=== PATIENT | female | born 1965 | race Caucasian/White ===

== ENCOUNTER → 2020-12-04 09:28 | Outpatient (CLI) | payer MEDICAID, SELFPAY ==
[2020-12-04 10:35] LABS: Vitamin D,25 Hydroxy 13.7 ng/mL
[2020-12-04 10:49] LABS: Anion Gap 4 (5-15); BUN 10 mg/dL (7-18); BUN/Creat Ratio 18.7 RATIO (10-20); Calcium,Total 14.3 mg/dL (8.5-10.1); Chloride 110 mmol/L (98-107); Cholesterol 259 mg/dL (200); Creatinine, Serum 0.54 mg/dL (0.55-1.02); EST Glomerular Filtration Rate 125 mL/min (>60); Est Glom Filt Rate - Afr Amer 151 mL/min (>60); Glucose 103 mg/dL (74-106); High Density Lipoprotein 48 mg/dL; Potassium 3.8 mmol/L (3.5-5.1); Sodium Level 141 mmol/L (136-145); Thyroid Stim Hormone (TSH) 1.05 uIU/mL (0.358-3.74); Triglycerides 198 mg/dL; Very Low Density Lipoprotein 40 mg/dL (5-40)
== END ==
PROVIDERS: Visit Provider Family Medicine
DX: Z00.00 Encounter for general adult medical examination without abnormal findings (principal)
CPT/HCPCS: 36415; 80048; 80061; 82306; 84443

== ENCOUNTER → 2020-12-08 14:13 | Outpatient (CLI) | payer MEDICAID, SELFPAY ==
[2020-12-08 16:02] LABS: Anion Gap 2 (5-15); BUN 10 mg/dL (7-18); BUN/Creat Ratio 18.2 RATIO (10-20); Calcium,Total 14.8 mg/dL (8.5-10.1); Chloride 110 mmol/L (98-107); Creatinine, Serum 0.55 mg/dL (0.55-1.02); EST Glomerular Filtration Rate 121 mL/min (>60); Est Glom Filt Rate - Afr Amer 146 mL/min (>60); Glucose 92 mg/dL (74-106); Potassium 4.2 mmol/L (3.5-5.1); Sodium Level 140 mmol/L (136-145)
[2020-12-11 09:21] LABS: PTHIN 529.9 pg/mL (18.4-80.1)
== END ==
PROVIDERS: PCP Family Medicine; Referring Provider Family Medicine; Visit Provider Family Medicine
DX: E83.52 Hypercalcemia (principal)
CPT/HCPCS: 36415; 80048; 82330; 83970

== ENCOUNTER 2020-12-12 14:26 | Observation (INO) | payer MEDICAID, SELFPAY ==
[2020-12-12 14:27] VITALS: BP 174/75; PULSE 73; RESP 16; TEMP 36.8; O2SAT 97; BMI 19.3
[2020-12-12 15:10] LABS: Absolute Lymphocyte Count 2.02 X10^3/uL (0.83-4.51); Absolute Neutrophil Count 5.3 X10^3/uL (2.0-7.7); Basophil# 0.08 X10^3/uL; Eosinophil# 0.26 X10^3/uL; Eosinophils% 3.2 % (0-5); Hematocrit 40.4 % (37-47); Hemoglobin 12.9 g/dL (12.0-15.0); Lymphocyte # 2.02 X10^3/ul (0.83-4.51); Lymphocyte % 24.8 % (19-41); Mean Corp Hgb Conc 31.9 g/dL (32-36); Mean Corpuscular Hgb 27.6 pg (27.0-32.0); Mean Corpuscular Volume 86.5 fL (81-99); Mean Platelet Vol. 10.6 fl (6.2-12.0); Monocyte# 0.45 X10^3/uL; Monocyte% 5.5 % (0-10); NRBC Flagged by Analyzer 0 % (0-5); Neutrophil # 5.31 X10^3/uL (2.7-7.7); Neutrophil % 65.1 % (47-70); Platelet Count 348 K/mm3 (150-450); RBC Distribution Width CV 13.8 % (11.6-14.6); RBC Distribution Width SD 43.5 fl (35.1-43.9); Red Blood Count 4.67 M/mm3 (4.2-5.4); White Blood Count 8.2 K/mm3 (4.4-11.0)
[2020-12-12 15:23] LABS: Anion Gap 2 (5-15); BUN 9 mg/dL (7-18); BUN/Creat Ratio 16.2 RATIO (10-20); Calcium,Total 14.4 mg/dL (8.5-10.1); Chloride 112 mmol/L (98-107); Creatinine, Serum 0.56 mg/dL (0.55-1.02); EST Glomerular Filtration Rate 119 mL/min (>60); Est Glom Filt Rate - Afr Amer 144 mL/min (>60); Estimated Creatinine Clearance 76.19 ml/min; Glucose 93 mg/dL (74-106); Magnesium 2.2 mg/dL (1.6-2.6); Potassium 3.6 mmol/L (3.5-5.1); Sodium Level 141 mmol/L (136-145)
--- NOTE | 2020-12-12 15:24 | RAD_ITS ---
STUDY: X-RAY CHEST REASON FOR EXAM: Female, 55 years old. Cough TECHNIQUE: PA and lateral views of the chest. COMPARISON: None. FINDINGS: Hyperinflation. Decreased bronchovascular markings in the lungs suggestive of emphysematous change. There is no demonstrated pleural abnormality. Normal size heart. Normal mediastinum and eldon. Normal visualized pulmonary arteries. Normal visualized aortic arch and descending thoracic aorta. Normal visualized thoracic spine. Normal visualized ribs, clavicles, and shoulders. There is no demonstrated abnormality of the visualized soft tissue structures of the upper abdomen. RAD/Chest PA and Lateral IMPRESSION: Hyperinflation and findings suggestive of emphysematous change. Electronically Signed: Miguel Angel Aragon MD at 15:44 EDT , Service support ,
[2020-12-12 15:38] VITALS: BP 126/59; PULSE 64; RESP 22; O2SAT 97
--- NOTE | 2020-12-12 16:42 | EX.ED.DYSGE1 ---
HPI History of Present Illness Chief Complaint: Abn Labs Narrative Narrative: Patient presenting for evaluation secondary to abnormal labs. Patient went to her primary care because she was having issues with generalized body pain. He initially started her on some antidepressants but did order lab work which ultimately resulted in the patient being profoundly hypercalcemic and to have hyperparathyroidism. He recommended that the patient come to the emergency department for further evaluation and likely admission. He did discuss this with endocrinology who recommended a sestamibi scan. Patient denies any fevers chills night sweats or unintended weight loss. She denies any neck pain or any difficulty swallowing. No heat or cold intolerance or changes in her appetite or mood. Review of systems otherwise negative. PFSH PFS Medical History History of anxiety Smoker Home Medications alendronate [Fosamax] 70 mg PO QWEEK 12/12/20 [History Last Taken Unknown] rosuvastatin [Crestor] 5 mg PO DAILY 12/12/20 [History Last Taken 12/11/20] sertraline [Zoloft] 25 mg PO DAILY 12/12/20 [History Last Taken 12/11/20] Allergy/AdvReac Type Severity Reaction Status Date / Time midazolam [From Versed] Allergy Nausea Verified 12/12/20 14:27 nalbuphine [From Nubain] Allergy Nausea Verified 12/12/20 14:27 Surgical History History of cholecystectomy History of hysterectomy Social History Smoking Status: Light Smoker (<10/day) ROS [facility] ED Constitutional Constitutional ED: Denies chills or fever(s) ENT ENT ED: Denies rhinorrhea Cardiovascular Cardiovascular: Denies chest pain Respiratory/Chest Respiratory/Chest: Denies cough or dyspnea Gastrointestinal Gastrointestinal: Denies abdominal pain, diarrhea, nausea or vomiting Genitourinary Genitourinary ED: Denies dysuria or hematuria Musculoskeletal Musculoskeletal: Denies back pain Integumentary Denies rash Neurologic Neurologic: Denies paresthesias or weakness Psychiatric Psychiatric: Denies depression Endocrine Endocrinology: Denies fatigue Allergic/Immunologic Allergic/Immunologic ED: Denies urticaria EXAM Physical Exam Const Vital Signs: 12/12/20 14:27 12/12/20 14:45 12/12/20 15:38 Temperature 98.3 F Temperature Source Temporal Pulse Rate 73 64 Respiratory Rate 16 22 H Respiratory Effort Normal Respiratory Pattern Normal Blood Pressure 174/75 H 126/59 H Blood Pressure Mean 108 81 Pulse Ox 97 97 Oxygen Delivery Method Room Air Room Air Positive well nourished and well developed General Appearance ED: well developed and NAD HEENT Reports moist mucous membranes Negative for trauma or tenderness Eyes EOMs intact bilaterally Neck no lymphadenopathy, supple and no JVD Chest Wall inspection of chest normal Resp normal respiratory effort and clear to auscultation bilaterally Cardio regular rate, regular rhythm, no murmurs and peripheral pulses 2+ throughout GI normal to inspection, nondistended, normoactive bowel sounds, non-tender and no masses Palpation: soft Back/Spine normal to inspection Extremity normal to inspection General Extremety ED: Negative for tenderness Neuro oriented x3 and no sensory deficits noted Sensorium / Orientation: alert Motor Exam: strength 5/5 throughout Psych mental status grossly normal Skin no rashes or lesions noted MDM MDM MDM Narrative Medical decision making narrative: Patient presented secondary to abnormal labs. This was confirmed on her laboratory testing the patient was noted to have a calcium of 14.4 consistent with her prior studies. Patient will be admitted for further work-up and treatment. I did perform a chest x-ray on the patient which by my personal review shows no signs of infiltrate or mass. Lab Data Labs: Laboratory Results - last 24 hr 12/12/20 12/12/20 15:00 15:00 WBC 8.2 RBC 4.67 Hgb 12.9 Hct 40.4 MCV 86.5 MCH 27.6 MCHC 31.9 L RDW Std Deviation 43.5 RDW Coeff of Tanner 13.8 Plt Count 348 MPV 10.6 Immature Gran % (Auto) 0.400 Neut % (Auto) 65.1 Lymph % (Auto) 24.8 [place] % (Auto) 5.5 Eos % (Auto) 3.2 Baso % (Auto) 1.0 Absolute Neuts (auto) 5.3 Absolute Lymphs (auto) 2.02 Nucleated RBC % 0 Sodium 141 Potassium 3.6 Chloride 112 H Carbon Dioxide 27.0 Anion Gap 2 L BUN 9 Creatinine 0.56 Estim Creat Clear Calc 76.19 Est GFR (MDRD) Af Amer 144 Est GFR (MDRD) Non-Af 119 BUN/Creatinine Ratio 16.2 Glucose 93 Calcium 14.4 H* Magnesium 2.2 Radiography Chest X-Ray - ED: 2 View, Read by ED Physician and Normal Diagnostic Testing: Radiology Impression Chest X-Ray 12/12/20 15:24 IMPRESSION: Hyperinflation and findings suggestive of emphysematous change. Electronically Signed: Miguel Angel Aragon MD at 15:44 EDT , Service support , Discharge Plan Triage Chief Complaint: Abn Labs ED Provider: Arnie Elliott Dx/Rx/DC Orders Clinical Impression: Hypercalcemia Prescriptions: No Action alendronate [Fosamax] 70 mg tablet 70 mg PO QWEEK RF: 0 sertraline [Zoloft] 25 mg tablet 25 mg PO DAILY RF: 0 rosuvastatin [Crestor] 5 mg tablet 5 mg PO DAILY RF: 0 Primary Care Provider: Robinson Patiño Referrals: Robinson Patiño MD [Primary Care Provider] - Disposition Disposition: Acute Care Hospital [facility]
--- NOTE | 2020-12-12 16:47 | NURSING ---
[address] [place] HYPERCALCALC[facility]
[2020-12-12 16:48] VITALS: BP 126/59; PULSE 64; RESP 22; TEMP 36.8; O2SAT 97
[2020-12-12 17:23] VITALS: BMI 19.0
--- NOTE | 2020-12-12 17:26 | PCM.HP.STD ---
Documented by User: Thomas JAMES 12/12/20 17:46 HPI - General General Date of Admission: 12/12/20 HPI Narrative Patient is a 55-year-old female who presents to the ED 12/12/2020 with a chief complaint of anxiety and diffuse body pain. 1 week ago patient started noticed that she has bilateral hand/joint pain, around the same time daughter started noticed that her her mother's anxiety was increasing. Patient presented to her primary care provider who placed the patient on Zoloft for anxiety and roz appropriate labs. Today patient was contacted by her primary care provider who told her that she had an elevated calcium level and that she needed to present to the ED immediately. ROS positive for chest pain, palpitation and mood changes which patient attributes to her recent anxiety. Denies fevers, chills, night sweats, unintended weight loss neck pain, difficulty swallowing, heat or cold intolerance, changes in appetite. work-up in the ED demonstrated a calcium of 14.4, which was consistent with prior studies. CBC unremarkable. Parathyroid hormone drawn on 12/08/2020 was 529.9. Chest x-ray demonstrated hyperinflation of the lungs suggestive of emphysematous change, no signs of mass or infiltrate evident. Patient will be admitted for work-up of hyperparathyroidism. COUNT INCLUDES [facility] Medical History History of anxiety Smoker Home Medications alendronate [Fosamax] 70 mg PO QWEEK 12/12/20 [History Last Taken Unknown] rosuvastatin [Crestor] 5 mg PO DAILY 12/12/20 [History Last Taken 12/11/20] sertraline [Zoloft] 25 mg PO DAILY 12/12/20 [History Last Taken 12/11/20] Allergy/AdvReac Type Severity Reaction Status Date / Time codeine AdvReac blacked Verified 12/12/20 16:48 out midazolam [From Versed] AdvReac Nausea/vomi Verified 12/12/20 16:48 ting nalbuphine [From Nubain] AdvReac Nausea/vomi Verified 12/12/20 16:48 ting Surgical History History of cholecystectomy History of hysterectomy Social History Smoking Status: Light Smoker (<10/day) ROS ROS Narrative See HPI Constitutional Constitutional: Denies anorexia, change in weight, chills, fatigue, fever(s), malaise, night sweats, weakness or other Eyes Eyes: Denies blurry vision, change in eye color, change in vision, discharge from eye(s), double vision, erythema, eye pain, loss of vision or other ENT HEENT: Denies abnormal hearing, dysphagia, ear pain, epistaxis, headache(s), hearing loss, nasal congestion, nasal discharge, post nasal drip, sinus pressure, sore throat or other Cardiovascular Cardiovascular: Reports chest pain and palpitations Respiratory/Chest Respiratory/Chest: Denies cough, dyspnea, excessive phlegm production, hemoptysis, productive cough, shortness of breath at rest, shortness of breath with exertion, wheezing or other Gastrointestinal Gastrointestinal: Denies abdominal pain, coffee ground emesis, constipation, diarrhea, dyspepsia, hematemesis, hematochezia, loose stools, melena, nausea, vomiting or other Genitourinary Genitourinary: Denies burning urination, difficulty urinating, dysuria, hematuria, nocturia, urinary frequency, urinary hesitancy, urinary incontinence, urinary urgency or other Musculoskeletal Musculoskeletal: Reports back pain and joint pain Neurologic Neurologic: Denies abnormal gait, abnormal speech, confusion, disequilibrium, dizziness, focal weakness, headache(s), numbness, paresthesias, seizure-like activity, seizures, syncope, tingling, tremor(s) or other Psychiatric Psychiatric: Reports anxiety Endocrine Endocrinology: Denies change in body appearance, cold intolerance, excessive sweating, heat intolerance, polydipsia, polyuria or other Hematologic/Lymphatic Hematologic/Lymphatic: Denies anemia, easy bleeding, easy bruising, lymphadenopathy or other Allergic/Immunologic Allergic/Immunologic: Denies rhinitis, hives, eczemia, asthma or other Vital Signs Vital Signs Vital Signs: 12/12/20 14:27 12/12/20 14:45 12/12/20 15:38 Temperature 98.3 F Temperature Source Temporal Pulse Rate 73 64 Respiratory Rate 16 22 H Respiratory Effort Normal Respiratory Pattern Normal Blood Pressure 174/75 H 126/59 H Blood Pressure Mean 108 81 Pulse Ox 97 97 Oxygen Delivery Method Room Air Room Air 12/12/20 16:48 Temperature 98.3 F Temperature Source Temporal Pulse Rate 64 Respiratory Rate 22 H Respiratory Effort Respiratory Pattern Blood Pressure 126/59 H Blood Pressure Mean 81 Pulse Ox 97 Oxygen Delivery Method Room Air Physical Exam Narrative See HPI. Const alert, oriented x3 and no apparent distress HEENT normocephalic, head/scalp atraumatic and hearing grossly normal bilaterally Eyes EOMs intact bilaterally Neck no lymphadenopathy, supple and no JVD Resp normal respiratory effort and clear to auscultation bilaterally Cardio regular rate, regular rhythm, no murmurs and no JVD GI normal to inspection, nondistended, normoactive bowel sounds, soft to palpation and non-tender Extremity full ROM Skin no rashes or lesions noted, no wounds and no jaundice Neuro CN's II-XII intact bilaterally Psych affect normal Lab / Micro Data Result Diagrams: 12/12/20 15:00 12/12/20 15:00 Labs: Laboratory Results - last 24 hr 12/12/20 12/12/20 15:00 15:00 WBC 8.2 RBC 4.67 Hgb 12.9 Hct 40.4 MCV 86.5 MCH 27.6 MCHC 31.9 L RDW Std Deviation 43.5 RDW Coeff of Tanner 13.8 Plt Count 348 MPV 10.6 Immature Gran % (Auto) 0.400 Neut % (Auto) 65.1 Lymph % (Auto) 24.8 [place] % (Auto) 5.5 Eos % (Auto) 3.2 Baso % (Auto) 1.0 Absolute Neuts (auto) 5.3 Absolute Lymphs (auto) 2.02 Nucleated RBC % 0 Sodium 141 Potassium 3.6 Chloride 112 H Carbon Dioxide 27.0 Anion Gap 2 L BUN 9 Creatinine 0.56 Estim Creat Clear Calc 76.19 Est GFR (MDRD) Af Amer 144 Est GFR (MDRD) Non-Af 119 BUN/Creatinine Ratio 16.2 Glucose 93 Calcium 14.4 H* Magnesium 2.2 Radiology Impression Chest X-Ray 12/12/20 15:24 IMPRESSION: Hyperinflation and findings suggestive of emphysematous change. Electronically Signed: Miguel Angel Aragon MD at 15:44 EDT , Service support , Assessment & Plan Assessment/Plan (1) Hypercalcemia: Status: Acute Code(s): E83.52 - Hypercalcemia (2) Hyperparathyroidism: Status: Acute Code(s): E21.3 - Hyperparathyroidism, unspecified (3) History of anxiety: Status: Acute Code(s): Z86.59 - Personal history of other mental and behavioral disorders Plan: Patient is a 55-year-old female who presents to the ED 12/12/2020 with a chief complaint of anxiety and diffuse body pain. Patient presented to her primary care provider who placed the patient on Zoloft for anxiety and roz appropriate labs. Today patient was contacted by her primary care provider who told her that she had an elevated calcium level and that she needed to present to the ED immediately. ROS positive for chest pain, palpitation and mood changes which patient attributes to her recent anxiety. Work-up in the ED demonstrated a calcium of 14.4, which was consistent with prior studies. Parathyroid hormone drawn on 12/08/2020 was 529.9. Chest x-ray demonstrated hyperinflation of the lungs suggestive of emphysematous change, no signs of mass or infiltrate evident. Patient will be admitted for work-up of hyperparathyroidism to Med Surg 3. 1) Hypercalcemia secondary to hyperparathyroidism. 1 week history of diffuse body pain and anxiety. Labs at her primary care provider, as well as in the ED, demonstrated hypercalcemia, calcium currently 14.4. Labs from 12/08/2020 demonstrated a parathyroid hormone of 529.9, current labs pending. Plan; CBC and BMP in a.m, parathyroid scan in a.m, Fosamax initiated, Zofran as needed, Tylenol as needed. 2) Hx of Anxiety Possibly secondary to #1. Plan; Zoloft continued. DVT prophylaxis -not indicated Patient seen by Thomas Etienne PA-C, under the supervision of Dr. Card. Documented by User: Dr. Brad Card MD 12/12/20 19:22 HPI - General General Date of Admission: 12/12/20 PFS Medical History History of anxiety Smoker Home Medications alendronate [Fosamax] 70 mg PO QWEEK 12/12/20 [History Last Taken Unknown] rosuvastatin [Crestor] 5 mg PO DAILY 12/12/20 [History Last Taken 12/11/20] sertraline [Zoloft] 25 mg PO DAILY 12/12/20 [History Last Taken 12/11/20] Allergy/AdvReac Type Severity Reaction Status Date / Time codeine AdvReac blacked Verified 12/12/20 16:48 out midazolam [From Versed] AdvReac Nausea/vomi Verified 12/12/20 16:48 ting nalbuphine [From Nubain] AdvReac Nausea/vomi Verified 12/12/20 16:48 ting Surgical History History of cholecystectomy History of hysterectomy Social History Smoking Status: Light Smoker (<10/day) Lab / Micro Data Result Diagrams: 12/12/20 15:00 12/12/20 15:00 Addendum Addendum: Dr. Card: I personally reviewed the chart and examined the patient, and agree with the above findings. 55-year-old female presents from home on advice of her PCP secondary to highly elevated calcium level. She has been hypercalcemic for about a week now, and has remained hypercalcemic since December 04, 2020, at that time she was also found to have a vitamin D deficiency and highly elevated PTH to 529.9. She states that about 3 months ago she noticed that her urine was very concentrated but she has been having episodes of anxiety as well as chest pain but no recent kidney stones for about a month. She recently moved here from [place] and just found her PCP. In discussions with endocrinology, it was felt that she needed a parathyroid scan for localization. We will continue with IV fluids, she has not started her bisphosphonate, if the IV fluids do not decrease her calcium may need to proceed with denosumab or something similar. Visit Charges OBSV E&M: 28347 Initial observation care L3
[2020-12-12 17:46] VITALS: BP 134/77; PULSE 58; RESP 16; TEMP 36.8; O2SAT 97
[2020-12-12] MEDS: 0.9% Normal Saline 1,000 ML 125 ML IV (17:55)
[2020-12-12 21:20] VITALS: BP 123/55; PULSE 66; RESP 16; TEMP 36.8; O2SAT 96
[2020-12-12] MEDS: Atorvastatin Calcium 10 MG Tablet PO (21:26)
[2020-12-13] MEDS: 0.9% Normal Saline 1,000 ML 125 ML IV ×3 (01:28→18:12)
[2020-12-13 02:34] VITALS: BP 106/56; PULSE 55; RESP 16; TEMP 36.8; O2SAT 95
[2020-12-13 05:36] LABS: Absolute Lymphocyte Count 2.76 X10^3/uL (0.83-4.51); Absolute Neutrophil Count 3.7 X10^3/uL (2.0-7.7); Basophil# 0.05 X10^3/uL; Basophil% 0.7 % (0-1); Eosinophil# 0.39 X10^3/uL; Eosinophils% 5.2 % (0-5); Hematocrit 34.6 % (37-47); Hemoglobin 10.8 g/dL (12.0-15.0); Lymphocyte # 2.76 X10^3/ul (0.83-4.51); Lymphocyte % 36.6 % (19-41); Mean Corp Hgb Conc 31.2 g/dL (32-36); Mean Corpuscular Hgb 27.8 pg (27.0-32.0); Mean Corpuscular Volume 88.9 fL (81-99); Mean Platelet Vol. 10.8 fl (6.2-12.0); Monocyte# 0.62 X10^3/uL; Monocyte% 8.2 % (0-10); NRBC Flagged by Analyzer 0 % (0-5); Neutrophil # 3.71 X10^3/uL (2.7-7.7); Neutrophil % 49.2 % (47-70); Platelet Count 282 K/mm3 (150-450); RBC Distribution Width CV 13.9 % (11.6-14.6); RBC Distribution Width SD 45.3 fl (35.1-43.9); Red Blood Count 3.89 M/mm3 (4.2-5.4); White Blood Count 7.5 K/mm3 (4.4-11.0)
[2020-12-13] MEDS: Alendronate Sodium 70 MG Tablet PO (05:41)
[2020-12-13 05:54] LABS: Anion Gap 2 (5-15); BUN 12 mg/dL (7-18); BUN/Creat Ratio 23.8 RATIO (10-20); Calcium,Total 12.5 mg/dL (8.5-10.1); Chloride 114 mmol/L (98-107); EST Glomerular Filtration Rate 133 mL/min (>60); Est Glom Filt Rate - Afr Amer 161 mL/min (>60); Estimated Creatinine Clearance 83.68 ml/min; Glucose 96 mg/dL (74-106); Potassium 3.8 mmol/L (3.5-5.1); Sodium Level 142 mmol/L (136-145)
--- NOTE | 2020-12-13 05:55 | NM_ITS ---
Parathyroid scintigraphy INDICATION: Primary hyperparathyroidism. TECHNIQUE: After the ministration of 26.8 mCi of technetium 99m sestamibi intravenously, multiple scintigraphic images of the neck were obtained. FINDINGS: Examination immediate images demonstrates normal uptake within the salivary glands and thyroid gland. Examination the delayed image demonstrates no abnormal area of increased uptake within the neck to suggest parathyroid adenoma. IMPRESSION: No scintigraphic evidence of parathyroid adenoma. Electronically Signed: Orestes Dean MD at 11:35 EDT Tel , Service support , NM/Parathyroid Scan
[2020-12-13] MEDS: 0.9% Saline Lock 10 ML Syringe IV (08:47)
[2020-12-13 09:12] LABS: PTHIN 493.1 pg/mL (18.4-80.1)
[2020-12-13 09:54] VITALS: BP 108/46; PULSE 57; RESP 18; TEMP 36.8; O2SAT 95
[2020-12-13] MEDS: Sertraline 50 MG Tablet 25 MG PO (09:59)
--- NOTE | 2020-12-13 13:34 | PCM.PN.HOSP ---
Documented by User: Thomas JAMES 12/13/20 13:46 Subjective Subjective: Patient is a 55-year-old female comfortably resting in bed, alert and oriented x3. Patient endorses moderate pain throughout her body especially in her hands bilaterally. Denies chest pain, shortness of breath, palpitations, fever, chills, N/V/D. Objective Data Objective Data Vital Signs: Vital Signs Temp Pulse Resp BP Pulse Ox 98.2 F 57 L 18 108/46 L 95 12/13/20 09:54 12/13/20 09:54 12/13/20 09:54 12/13/20 09:54 12/13/20 09:54 Oxygen Delivery Method Room Air Weight: 94 lb 2.198 oz Body Mass Index (BMI) 19.0 Intake & Output: Intake and Output for Last 24 Hours 12/11/20 12/12/20 12/13/20 23:59 23:59 23:59 Intake Total 2775.00 / 2775.00 Balance 2775.00 / 2775.00 Lab / Micro Data Result Diagrams: 12/13/20 05:22 12/13/20 05:22 Labs: Laboratory Results - last 24 hr 12/12/20 12/12/20 12/12/20 15:00 15:00 15:00 WBC 8.2 RBC 4.67 Hgb 12.9 Hct 40.4 MCV 86.5 MCH 27.6 MCHC 31.9 L RDW Std Deviation 43.5 RDW Coeff of Tanner 13.8 Plt Count 348 MPV 10.6 Immature Gran % (Auto) 0.400 Neut % (Auto) 65.1 Lymph % (Auto) 24.8 [place] % (Auto) 5.5 Eos % (Auto) 3.2 Baso % (Auto) 1.0 Absolute Neuts (auto) 5.3 Absolute Lymphs (auto) 2.02 Nucleated RBC % 0 Sodium 141 Potassium 3.6 Chloride 112 H Carbon Dioxide 27.0 Anion Gap 2 L BUN 9 Creatinine 0.56 Estim Creat Clear Calc 76.19 Est GFR (MDRD) Af Amer 144 Est GFR (MDRD) Non-Af 119 BUN/Creatinine Ratio 16.2 Glucose 93 Calcium 14.4 H* Magnesium 2.2 PTH Intact 493.1 H 12/13/20 12/13/20 05:22 05:22 WBC 7.5 RBC 3.89 L Hgb 10.8 L Hct 34.6 L MCV 88.9 MCH 27.8 MCHC 31.2 L RDW Std Deviation 45.3 H RDW Coeff of Tanner 13.9 Plt Count 282 MPV 10.8 Immature Gran % (Auto) 0.100 Neut % (Auto) 49.2 Lymph % (Auto) 36.6 [place] % (Auto) 8.2 Eos % (Auto) 5.2 H Baso % (Auto) 0.7 Absolute Neuts (auto) 3.7 Absolute Lymphs (auto) 2.76 Nucleated RBC % 0 Sodium 142 Potassium 3.8 Chloride 114 H Carbon Dioxide 26.0 Anion Gap 2 L BUN 12 Creatinine 0.50 L Estim Creat Clear Calc 83.68 Est GFR (MDRD) Af Amer 161 Est GFR (MDRD) Non-Af 133 BUN/Creatinine Ratio 23.8 H Glucose 96 Calcium 12.5 H Magnesium PTH Intact Radiography Diagnostic Testing: Radiology Impression Chest X-Ray 12/12/20 15:24 IMPRESSION: Hyperinflation and findings suggestive of emphysematous change. Electronically Signed: Miguel Angel Aragon MD at 15:44 EDT , Service support , Parathyroid Scan Nuclear Medicine 12/13/20 05:55 Physical Exam Narrative See subjective. Const alert, oriented x3 and no apparent distress Constitutional Narrative: Patient reports moderate pain throughout her body and hands bilaterally. HEENT head/scalp atraumatic and moist oral mucous membranes Head and Scalp: normocephalic Eyes EOMs intact bilaterally Neck no lymphadenopathy, supple and no JVD Resp normal respiratory effort, no retractions, no use of accessory muscles and clear to auscultation bilaterally Cardio regular rate, regular rhythm, no murmurs and no JVD GI normal to inspection, nondistended, normoactive bowel sounds, soft to palpation, non-tender and non-distended Extremity normal to inspection and full ROM Skin no rashes or lesions noted and no wounds Neuro CN's II-XII intact bilaterally Psych affect normal Assessment & Plan Assessment/Plan (1) History of anxiety: Status: Acute Code(s): Z86.59 - Personal history of other mental and behavioral disorders (2) Hyperparathyroidism: Status: Acute Code(s): E21.3 - Hyperparathyroidism, unspecified (3) Hypercalcemia: Status: Acute Code(s): E83.52 - Hypercalcemia Plan: Patient is a 55-year-old female who was admitted to the hospital on 12/12/2020 with a chief complaint of anxiety diffuse body pain, and admitted for hypercalcemia potentially due to hyperparathyroidism. Initial nuclear medicine scan this morning demonstrated no scintigraphic evidence of parathyroid adenoma. Repeat scan ordered per radiologist. Currently awaiting results. 1) Hypercalcemia secondary to hyperparathyroidism. Hypercalcemia on admission at 14.4, parathyroid hormone 529.9. Currently, 12.5 and 493.1, respectively. Plan; CBC and BMP in a.m, parathyroid scan in a.m, Fosamax initiated, Zofran as needed, Tylenol as needed, repeat nuclear medicine scan results pending. 2) Hx of Anxiety Possibly secondary to #1. Plan; Zoloft continued. DVT prophylaxis - not indicated Patient seen by Thomas Etienne PA-C, under the supervision of Dr. Card. Documented by User: Dr. Michelle Baron MD 12/13/20 16:08 Objective Data Lab / Micro Data Result Diagrams: 12/13/20 05:22 12/13/20 05:22 Visit Charges Inpatient E&M: 50125 Subs Hosp L2 Addendum Patient seen and examined. She was admitted with a complaint of anxiety and diffuse body pain. She had seen her PCP was contacted after results of blood work done showed elevated calcium. She was directed to the ED. Calcium was 14.4 and PTH. Labs done on 12/08/2020 was 5-9.9. She has been managed for hypercalcemia and hyperparathyroidism. Patient was seen in her bed with daughter by her bedside. She complained of generalized body pain. She denied any shortness of breath, fever chills, constipation, abdominal pain, nausea vomiting or diarrhea. Review of symptoms otherwise negative. She has remained hemodynamically stable. O/E: Const alert, oriented x3 and no apparent distress, appears older than stated age. HEENT head/scalp atraumatic and moist oral mucous membranes Head and Scalp: normocephalic Eyes EOMs intact bilaterally Neck no lymphadenopathy, supple and no JVD Resp normal respiratory effort, no retractions, no use of accessory muscles and clear to auscultation bilaterally Cardio regular rate, regular rhythm, no murmurs and no JVD GI normal to inspection, nondistended, normoactive bowel sounds, soft to palpation, non-tender and non-distended Extremity normal to inspection and full ROM Skin no rashes or lesions noted and no wounds Neuro CN's II-XII intact bilaterally Psych affect normal Plan is to continue hydration with IV fluid on account of hypercalcemia. Calcium is now down to 12.5. She has been started on Fosamax. Parathyroid scan done today showed no evidence of parathyroid adenoma. Will trend calcium and if remains elevated, will consult endocrinology. Rest as per Thomas Etienne PA-C's note, which I have reviewed and endorsed. Inpatient E&M: 04372 Subs Hosp L2
[2020-12-13 15:55] VITALS: BP 132/47; PULSE 61; RESP 18; TEMP 37.1; O2SAT 97
[2020-12-13] MEDS: Atorvastatin Calcium 10 MG Tablet PO (21:13)
[2020-12-13 21:55] VITALS: BP 107/49; PULSE 55; RESP 16; TEMP 37.2; O2SAT 98
[2020-12-13 23:00] VITALS: PULSE 55
[2020-12-14] MEDS: 0.9% Normal Saline 1,000 ML 125 ML IV ×2 (02:09→09:35)
[2020-12-14 03:55] VITALS: BP 131/49; PULSE 59; RESP 16; TEMP 36.9; O2SAT 97
[2020-12-14 06:38] LABS: Absolute Lymphocyte Count 1.66 X10^3/uL (0.83-4.51); Absolute Neutrophil Count 4.5 X10^3/uL (2.0-7.7); Basophil# 0.03 X10^3/uL; Basophil% 0.4 % (0-1); Eosinophil# 0.37 X10^3/uL; Eosinophils% 5.3 % (0-5); Hematocrit 33.7 % (37-47); Hemoglobin 10.7 g/dL (12.0-15.0); Lymphocyte # 1.66 X10^3/ul (0.83-4.51); Lymphocyte % 23.8 % (19-41); Mean Corp Hgb Conc 31.8 g/dL (32-36); Mean Corpuscular Hgb 28.2 pg (27.0-32.0); Mean Corpuscular Volume 88.9 fL (81-99); Mean Platelet Vol. 10.9 fl (6.2-12.0); Monocyte# 0.39 X10^3/uL; Monocyte% 5.6 % (0-10); NRBC Flagged by Analyzer 0 % (0-5); Neutrophil # 4.51 X10^3/uL (2.7-7.7); Neutrophil % 64.8 % (47-70); Platelet Count 239 K/mm3 (150-450); RBC Distribution Width CV 14.1 % (11.6-14.6); RBC Distribution Width SD 45.6 fl (35.1-43.9); Red Blood Count 3.79 M/mm3 (4.2-5.4)
[2020-12-14 07:04] LABS: ALB/GLOB Ratio 1.1 RATIO (0.9-2.4); AST(SGOT) 11 U/L (15-37); Alanine Aminotransfer ALT/SGPT 15 U/L (13-56); Albumin, Serum 2.8 g/dL (3.2-5.0); Alkaline Phosphatase 110 U/L (45-117); Anion Gap 2 (5-15); BUN 8 mg/dL (7-18); BUN/Creat Ratio 16.9 RATIO (10-20); Calcium,Total 11.1 mg/dL (8.5-10.1); Chloride 118 mmol/L (98-107); Creatinine, Serum 0.47 mg/dL (0.55-1.02); EST Glomerular Filtration Rate 143 mL/min (>60); Est Glom Filt Rate - Afr Amer 174 mL/min (>60); Estimated Creatinine Clearance 89.02 ml/min; Globulin 2.5 g/dL (2.2-4.2); Glucose 88 mg/dL (74-106); Potassium 3.9 mmol/L (3.5-5.1); Protein, Total 5.3 g/dL (6.4-8.2); Sodium Level 143 mmol/L (136-145)
[2020-12-14 09:30] VITALS: BP 118/58; PULSE 70; RESP 18; TEMP 36.7; O2SAT 97
[2020-12-14] MEDS: Sertraline 50 MG Tablet 25 MG PO (09:35)
--- NOTE | 2020-12-14 12:59 | PCM.DC ---
Discharge Instructions Diet Discharge Diet: No restrictions Activity Discharge Activity: Return to Normal Activity Dressing / Incision Call your doctor if you observe: Numbness or Tingling, Dizziness, Chest pain and Uncontrolled pain Follow Up Care Test Results: Test results from this visit will be discussed in further detail at your follow-up appointment, if applicable. Discharge Plan Admission Admit Date/Time: 12/12/20 16:52 Attending Provider: Michelle Baron Primary Care Provider: Robinson Patiño Instructions Additional Instructions / Restrictions: You will hold Fosamax as you received IV dose of zoledronic acid prior to discharge. You will need repeat BMP in 3 to 5 days to reassess calcium which can be completed by your primary care provider. Spoke with endocrinology, Dr. Girard who recommends holding Fosamax pending repeat labs and follow-up with her 01/23/2021. Drink plenty of water. Discharge Orders/Prescriptions Prescriptions: Continued sertraline [Zoloft] 25 mg tablet 25 mg PO DAILY RF: 0 rosuvastatin [Crestor] 5 mg tablet 5 mg PO DAILY RF: 0 Discontinued alendronate [Fosamax] 70 mg tablet 70 mg PO QWEEK RF: 0 Referrals / Follow Up: Robinson Patiño MD [Primary Care Provider] - See Referral Note (3-5 Days) Jimmy Girard MD [STAFF PHYSICIAN] - See Referral Note (As scheduled at 01/23/2021 at 1330) Disposition Disposition (needs filled in before D/C Order can be placed): Home, self care
--- NOTE | 2020-12-14 13:08 | DS.PCM_ITS ---
Documented by User: Kelly Ricks NP, CARINE-C 12/14/20 13:19 Providers Date of Admission: 12/12/20 Primary Care Physician: Dr. Robinson Patiño MD Reason For Visit: HYPERPARATHYROIDISM Diagnosis Discharge Diagnosis (1) History of anxiety: Status: Acute Code(s): Z86.59 - Personal history of other mental and behavioral disorders (2) Hyperparathyroidism: Status: Acute Code(s): E21.3 - Hyperparathyroidism, unspecified (3) Hypercalcemia: Status: Acute Code(s): E83.52 - Hypercalcemia Medications at Discharge Home Medications rosuvastatin [Crestor] 5 mg PO DAILY 12/12/20 sertraline [Zoloft] 25 mg PO DAILY 12/12/20 Hospital Course Operations None Procedures None Summary of Care Provided Minutes Spent on Discharge: 35 Hospital Course: Patient is a 55-year-old female admitted 12/12/2020 due to pain and abnormal labs at PCP. 1. Hypercalcemia secondary to hyperparathyroidism-calcium 14.4 on admission. Parathyroid hormone 529. Aggressive hydration during admission. Recently initiated on Fosamax by PCP. Parathyroid scan showed no evidence of parathyroid adenoma. Calcium at discharge 11.1. Spoke with endocrinology, Dr. Girard who recommends IV dose of zoledronic acid 4 mg x 1 which will provide more extended control of calcium. Hold Fosamax at discharge for now following IV dose. Repeat BMP within 1 week by primary care provider. Patient has follow-up with Dr. Girard, endocrinology 01/23/2021 at 1:30 PM for further management and treatment. Patient may need tertiary outpatient evaluation given significantly elevated parathyroid hormone and negative parathyroid scan. 2. History of anxiety- on zoloft. Patient seen and examined prior to discharge. Physical assessment as noted below. Patient is stable for discharge with follow up recommendations as noted above. This patient was seen by PAM Middleton under the supervision of Dr. Baron. Physical Exam Const alert, oriented x3 and no apparent distress Orientation / Consciousness: awake, oriented to person, oriented to place and oriented to time HEENT normocephalic and moist oral mucous membranes Eyes PERRL, EOMs intact bilaterally and conjunctivae normal Neck no lymphadenopathy Resp normal respiratory effort and clear to auscultation bilaterally Cardio regular rate, regular rhythm and no murmurs Peripheral Pulses: pulses 2+ throughout GI normal to inspection, nondistended, normoactive bowel sounds, non-tender and non-distended Extremity normal to inspection Skin no rashes or lesions noted Lesions: no lesions Rashes: no rashes Trauma: no lacerations or abrasions Neuro oriented x3 Sensorium / Orientation: awake and alert Psych affect normal ABG / Lab / Microbiology Data Result Diagrams: 12/14/20 06:20 12/14/20 06:20 Laboratory: Laboratory Results - last 24 hr 12/14/20 12/14/20 06:20 06:20 WBC 7.0 RBC 3.79 L Hgb 10.7 L Hct 33.7 L MCV 88.9 MCH 28.2 MCHC 31.8 L RDW Std Deviation 45.6 H RDW Coeff of Tanner 14.1 Plt Count 239 MPV 10.9 Immature Gran % (Auto) 0.100 Neut % (Auto) 64.8 Lymph % (Auto) 23.8 [place] % (Auto) 5.6 Eos % (Auto) 5.3 H Baso % (Auto) 0.4 Absolute Neuts (auto) 4.5 Absolute Lymphs (auto) 1.66 Nucleated RBC % 0 Sodium 143 Potassium 3.9 Chloride 118 H Carbon Dioxide 23.0 Anion Gap 2 L BUN 8 Creatinine 0.47 L Estim Creat Clear Calc 89.02 Est GFR (MDRD) Af Amer 174 Est GFR (MDRD) Non-Af 143 BUN/Creatinine Ratio 16.9 Glucose 88 Calcium 11.1 H Total Bilirubin 0.20 AST 11 L ALT 15 Alkaline Phosphatase 110 Total Protein 5.3 L Albumin 2.8 L Globulin 2.5 Albumin/Globulin Ratio 1.1 D/C Instructions Discharge Diet: No restrictions Discharge Activity: Return to Normal Activity Call your doctor if you observe: Numbness or Tingling, Dizziness, Chest pain and Uncontrolled pain Meaningful Use Info Meaningful Use Diagnoses (Choose all that apply): None applicable Discharge Plan Admission Admit Date/Time: 12/12/20 16:52 Attending Provider: Michelle Baron Primary Care Provider: Robinson Patiño Instructions Additional Instructions / Restrictions: You will hold Fosamax as you received IV dose of zoledronic acid prior to discharge. You will need repeat BMP in 3 to 5 days to reassess calcium which can be completed by your primary care provider. Spoke with endocrinology, Dr. Girard who recommends holding Fosamax pending repeat labs and follow-up with her 01/23/2021. Drink plenty of water. Discharge Orders/Prescriptions Prescriptions: Continued sertraline [Zoloft] 25 mg tablet 25 mg PO DAILY RF: 0 rosuvastatin [Crestor] 5 mg tablet 5 mg PO DAILY RF: 0 Discontinued alendronate [Fosamax] 70 mg tablet 70 mg PO QWEEK RF: 0 Referrals / Follow Up: Robinson Patiño MD [Primary Care Provider] - See Referral Note (3-5 Days) Jimmy Girard MD [STAFF PHYSICIAN] - See Referral Note (As scheduled at 01/23/2021 at 1330) Disposition Disposition (needs filled in before D/C Order can be placed): Home, self care Documented by User: Dr. Michelle Baron MD 12/14/20 16:38 Providers Date of Admission: 12/12/20 Reason For Visit: HYPERPARATHYROIDISM Medications at Discharge Home Medications rosuvastatin [Crestor] 5 mg PO DAILY 12/12/20 sertraline [Zoloft] 25 mg PO DAILY 12/12/20 ABG / Lab / Microbiology Data Result Diagrams: 12/14/20 06:20 12/14/20 06:20 Discharge Plan Admission Admit Date/Time: 12/12/20 16:52 Attending Provider: Michelle Baron Primary Care Provider: Robinson Patiño Instructions Additional Instructions / Restrictions: You will hold Fosamax as you received IV dose of zoledronic acid prior to discharge. You will need repeat BMP in 3 to 5 days to reassess calcium which can be completed by your primary care provider. Spoke with endocrinology, Dr. Girard who recommends holding Fosamax pending repeat labs and follow-up with her 01/23/2021. Drink plenty of water. Discharge Orders/Prescriptions Prescriptions: Continued sertraline [Zoloft] 25 mg tablet 25 mg PO DAILY RF: 0 rosuvastatin [Crestor] 5 mg tablet 5 mg PO DAILY RF: 0 Discontinued alendronate [Fosamax] 70 mg tablet 70 mg PO QWEEK RF: 0 Referrals / Follow Up: Robinson Patiño MD [Primary Care Provider] - See Referral Note (3-5 Days) Jimmy Girard MD [STAFF PHYSICIAN] - See Referral Note (As scheduled at 01/23/2021 at 1330) Disposition Disposition (needs filled in before D/C Order can be placed): Home, self care Addendum Addendum: Patient seen by Kelly OROZCO under my supervision Patient is a 55-year-old female with a past medical history as outlined who was admitted through the ED on 12/12/2020 with a complaint of anxiety and diffuse body pain. She was found to be hypercalcemic with a markedly elevated PTH level. She was admitted and managed for acute symptomatic hypocalcemia with calcium being around fourteen. Parathyroid hormone was 5-9.9. It trended down with IV fluid hydration. Patient initially received a dose of Fosamax. She had parathyroid gland nuclear scan which did not show any evidence of any adenoma. Endocrinology recommended that patient received a dose of IV zoledronic acid which would provide more extended control of calcium and her Fosamax was held at discharge. Patient was discharged home on 12/14/2020 and is to have repeat BMP within 1 week to check a calcium level. He is also to follow-up with endocrinology on 01/23/2021 at 1:30 PM for further work-up as needed. Patient was seen and examined prior to discharge. She had no complaints and in pain not improved. Review of systems otherwise negative. Labs and vitals reviewed. Medication reviewed and reconciled. O/E: Orientation / Consciousness: awake, oriented to person, oriented to place and oriented to time HEENT normocephalic and moist oral mucous membranes Eyes PERRL, EOMs intact bilaterally and conjunctivae normal Neck no lymphadenopathy Resp normal respiratory effort and clear to auscultation bilaterally Cardio regular rate, regular rhythm and no murmurs Peripheral Pulses: pulses 2+ throughout GI normal to inspection, nondistended, normoactive bowel sounds, non-tender and non-distended Extremity normal to inspection Skin no rashes or lesions noted Lesions: no lesions Rashes: no rashes Trauma: no lacerations or abrasions Neuro oriented x3 Sensorium / Orientation: awake and alert Psych affect normal Rest as per Kelly Rambo APPLICATION DEVELOPMENT DIRECTOR-C's note, which I have reviewed. Visit Charges OBSV E&M: [id number] Observation care discharge
[2020-12-14 14:35] VITALS: BP 141/59; PULSE 73; RESP 18; TEMP 36.8; O2SAT 97
== END 2020-12-14 16:25 | disposition home or self-care (01) ==
LOC: ED 16:44 → MS3 17:30
PROVIDERS: Physician Assistant; Admitting Provider Family Medicine; Emergency Provider Emergency Medicine; PCP Family Medicine; Visit Provider Student in an Organized Health Care Education/Training Program
DX: E21.0 Primary hyperparathyroidism (principal); F41.9 Anxiety disorder, unspecified; Z79.899 Other long term (current) drug therapy; F17.200 Nicotine dependence, unspecified, uncomplicated
CPT/HCPCS: 36415; 71046; 78070; 80048; 80053; 83735; 83970; 85025; 96361; 96365; 99218; 99251; 99285; A9500; J3489; J7030; A4216; G0378; G0463

== ENCOUNTER → 2020-12-19 13:11 | Outpatient (CLI) | payer MEDICAID, SELFPAY ==
[2020-12-12 14:27] VITALS: BMI 19.3
[2020-12-12 17:23] VITALS: BMI 19.0
--- NOTE | 2020-12-19 13:14 | CT_ITS ---
STUDY: CT SOFT TISSUE NECK WITHOUT CONTRAST REASON FOR EXAM: Female, 55 years old. THYROID DYSFUNCTION. Difficulty breathing. High calcium levels. RADIATION DOSAGE (If Supplied By Facility): CTDIvol = ( 8.81 ) mGy, DLP = ( 246.57 ) mGycm TECHNIQUE: The patient was scanned in a multi-detector CT scanner. High resolution transaxial imaging was performed without the administration of intravenous contrast material. Sagittal and coronal images were reconstructed. Individualized dose optimization techniques were used for this CT. COMPARISON: None. FINDINGS: Normal bilateral parotid glands. Normal bilateral pantograph setter spaces. Normal bilateral parapharyngeal spaces. Normal bilateral carotid spaces. Normal bilateral sublingual and submandibular glands and spaces. Normal visualized nasopharynx. Normal retropharyngeal space. Normal perivertebral space. Normal visualized bilateral faucial tonsils. There is soft tissue prominence in the left side of the hypopharynx measuring 1.4 cm x 1.1 cm. This causes indentation of the left piriform sinus. Correlation with endoscopy is recommended. The visualized cervical lymph nodes (levels I-) are within normal size limits, and maintain normal morphology. There is no demonstrated solid or cystic mass lesion. Normal epiglottis, bilateral vallecula and hypopharynx. The pre-epiglottic and paraglottic adipose spaces are normal. Normal visualized bilateral piriform sinuses, aryepiglottic folds, vocal cords, and arytenoid-cricoid articulations. Normal subglottic trachea. Normal bilateral lobes of the thyroid gland. Normal visualized pulmonary apices. Partial opacification of the left maxillary sinus. Mucosal thickening along the medial wall of the left maxillary sinus. There is degenerative changes of the cervical spine. CT/Soft Tissue Neck without Contr IMPRESSION: Soft tissue prominence of the left side of the hypopharynx with indentation of the left piriform sinus. Correlation with endoscopy is recommended. Electronically Signed: Miguel Angel Aragon MD at 13:53 EDT , Service support ,
== END ==
PROVIDERS: PCP Family Medicine; Referring Provider Family Medicine; Visit Provider Family Medicine
DX: E07.9 Disorder of thyroid, unspecified (principal)
CPT/HCPCS: 70490

== ENCOUNTER → 2020-12-26 13:24 | Outpatient (CLI) | payer MEDICAID, SELFPAY ==
[2020-12-12 17:23] VITALS: BMI 19.0
--- NOTE | 2020-12-26 13:26 | CT_ITS ---
STUDY: CT CHEST WITHOUT CONTRAST REASON FOR EXAM: Female, 55 years old. Tobacco use. Hypercalcemia. RADIATION DOSAGE (If Supplied By Facility): CTDIvol = ( 5.16 ) mGy, DLP = ( 160.19 ) mGycm TECHNIQUE: Transaxial imaging was performed without the administration of intravenous contrast material. Multiplanar coronal and sagittal images were reformatted. Individualized dose optimization techniques were used for this CT. COMPARISON: Chest, 12/12/2020. FINDINGS: The lungs are well expanded. There is no focal mass or infiltrate. There is no demonstrated pleural abnormality. Normal heart and pericardium. Minimal coronary artery calcifications. Normal mediastinum. Normal hilar regions. Normal unenhanced pulmonary arteries. Annual atherosclerotic changes of the thoracic aorta without aneurysm. Normal osseous structures. There is no demonstrated abnormality of the visualized upper abdomen. CT/Chest without Contrast IMPRESSION: Normal unenhanced CT Chest examination. Electronically Signed: Christopher Mckinney DO at 17:02 EDT Tel [phone], Service support ,
[2020-12-26 17:48] LABS: Anion Gap 6 (5-15); BUN 15 mg/dL (7-18); BUN/Creat Ratio 20.3 RATIO (10-20); Calcium,Total 13.3 mg/dL (8.5-10.1); Chloride 106 mmol/L (98-107); Creatinine, Serum 0.74 mg/dL (0.55-1.02); EST Glomerular Filtration Rate 86 mL/min (>60); Est Glom Filt Rate - Afr Amer 104 mL/min (>60); Glucose 121 mg/dL (74-106); Potassium 4.6 mmol/L (3.5-5.1); Sodium Level 138 mmol/L (136-145)
[2020-12-27 08:26] LABS: PTHIN 320.7 pg/mL (18.4-80.1)
== END ==
PROVIDERS: PCP Family Medicine; Referring Provider Family Medicine; Visit Provider Family Medicine
DX: E83.52 Hypercalcemia (principal); Z72.0 Tobacco use
CPT/HCPCS: 36415; 71250; 80048; 83970

== ENCOUNTER → 2021-01-23 14:00 | Outpatient (CLI) | payer MEDICAID, SELFPAY ==
[2021-01-23 13:43] VITALS: BMI 19.0
[2021-01-23 15:24] LABS: PTHIN 335.2 pg/mL (18.4-80.1)
[2021-01-23 15:25] LABS: Vitamin D,25 Hydroxy 21.2 ng/mL
[2021-01-23 15:46] LABS: Calcium,Total 13.2 mg/dL (8.5-10.1); Thyroid Stim Hormone (TSH) 0.93 uIU/mL (0.358-3.74)
== END ==
PROVIDERS: PCP Family Medicine; Referring Provider Internal Medicine Endocrinology, Diabetes & Metabolism; Visit Provider Internal Medicine Endocrinology, Diabetes & Metabolism
DX: E21.3 Hyperparathyroidism, unspecified (principal); E55.9 Vitamin D deficiency, unspecified
CPT/HCPCS: 36415; 82306; 82310; 83970; 84443

== ENCOUNTER → 2021-01-30 10:43 | Outpatient (CLI) | payer MEDICAID, SELFPAY ==
[2021-01-23 13:43] VITALS: BMI 19.0
[2021-01-30 13:13] LABS: Calcium,Total 13.2 mg/dL (8.5-10.1)
== END ==
PROVIDERS: PCP Family Medicine; Referring Provider Internal Medicine Endocrinology, Diabetes & Metabolism; Visit Provider Internal Medicine Endocrinology, Diabetes & Metabolism
DX: E83.52 Hypercalcemia (principal)
CPT/HCPCS: 36415; 82310

== ENCOUNTER → 2021-02-06 12:01 | Outpatient (CLI) | payer MEDICAID, SELFPAY ==
[2021-01-23 13:43] VITALS: BMI 19.0
--- NOTE | 2021-02-06 12:04 | RAD_ITS ---
STUDY: X-RAY - PARANASAL SINUSES REASON FOR EXAM: Female, 55 years old. SINUSITIS, BACTERIAL TECHNIQUE: 3 view(s) of the paranasal sinuses were obtained. COMPARISON: None. FINDINGS: Normal visualized frontal, ethmoidal and sphenoid sinuses. There is a suggestion of mild mucosal thickening of the maxillary sinuses. Normal visualized facial bones. The soft tissue structures are unremarkable. RAD/Sinuses min 3 Views IMPRESSION: Mild Mucosal thickening of the maxillary sinuses, mild sinusitis. Electronically Signed: Corinne Syed MD at 3:48 EDT Tel , Service support ,
== END ==
PROVIDERS: PCP Family Medicine; Referring Provider Family Medicine; Visit Provider Family Medicine
DX: J32.9 Chronic sinusitis, unspecified (principal)
CPT/HCPCS: 70220

== ENCOUNTER → 2021-02-06 13:40 | Outpatient (CLI) | payer MEDICAID, SELFPAY ==
[2021-01-23 13:43] VITALS: BMI 19.0
== END ==
PROVIDERS: PCP Family Medicine; Visit Provider Family Medicine
DX: H10.30 Unspecified acute conjunctivitis, unspecified eye (principal)
CPT/HCPCS: 70220; 87070; 87075; 87205

== ENCOUNTER → 2021-02-23 11:47 | Outpatient (CLI) | payer MEDICAID, SELFPAY ==
[2021-01-23 13:43] VITALS: BMI 19.0
[2021-02-23 16:41] LABS: Vitamin D,25 Hydroxy 25.1 ng/mL
[2021-02-23 16:55] LABS: Anion Gap 3 (5-15); BUN 11 mg/dL (7-18); BUN/Creat Ratio 19.9 RATIO (10-20); Calcium,Total 13.5 mg/dL (8.5-10.1); Chloride 110 mmol/L (98-107); Creatinine, Serum 0.55 mg/dL (0.55-1.02); EST Glomerular Filtration Rate 120 mL/min (>60); Est Glom Filt Rate - Afr Amer 145 mL/min (>60); Glucose 71 mg/dL (74-106); Potassium 4.3 mmol/L (3.5-5.1); Sodium Level 139 mmol/L (136-145)
[2021-02-24 12:10] LABS: Cholesterol 215 mg/dL (200); High Density Lipoprotein 50 mg/dL; Triglycerides 167 mg/dL; Very Low Density Lipoprotein 33 mg/dL (5-40)
== END ==
PROVIDERS: PCP Family Medicine; Referring Provider Internal Medicine Endocrinology, Diabetes & Metabolism; Visit Provider Internal Medicine Endocrinology, Diabetes & Metabolism
DX: E78.5 Hyperlipidemia, unspecified (principal); E83.52 Hypercalcemia
CPT/HCPCS: 36415; 80048; 80061; 82306

== ENCOUNTER → 2021-03-28 13:06 | Outpatient (CLI) | payer MEDICAID, SELFPAY ==
[2021-03-28 15:33] LABS: Vitamin D,25 Hydroxy 39.1 ng/mL
[2021-03-28 16:15] LABS: Calcium,Total 13.6 mg/dL (8.5-10.1)
== END ==
PROVIDERS: PCP Family Medicine; Visit Provider Internal Medicine Endocrinology, Diabetes & Metabolism
DX: E55.9 Vitamin D deficiency, unspecified (principal)
CPT/HCPCS: 36415; 82306; 82310

== ENCOUNTER → 2021-04-20 12:48 | Outpatient (CLI) | payer MEDICAID, SELFPAY ==
[2021-04-20 13:02] VITALS: BP 152/78; PULSE 69; RESP 16; TEMP 37.1; O2SAT 98
[2021-04-20] MEDS: 0.9% NaCl Peripheral Flush Adult/Peds IV (13:06)
[2021-04-20 13:48] VITALS: BP 159/89; PULSE 63; RESP 16; TEMP 37.1; O2SAT 97
== END ==
PROVIDERS: PCP Family Medicine; Referring Provider Internal Medicine Endocrinology, Diabetes & Metabolism; Visit Provider Internal Medicine Endocrinology, Diabetes & Metabolism
DX: E83.52 Hypercalcemia (principal)
CPT/HCPCS: 96365; J3489; A4216

== ENCOUNTER → 2021-05-01 12:56 | Outpatient (CLI) | payer MEDICAID, SELFPAY ==
--- NOTE | 2021-05-01 12:59 | US_ITS ---
STUDY: THYROID ULTRASOUND REASON FOR EXAM: Female, 56 years old. Hyperparathyroidism TECHNIQUE: Ultrasound evaluation of the thyroid was performed with real-time and static millan-scale imaging. COMPARISON: Comparison is made with prior chest examination dated 04/24/2021. FINDINGS: RIGHT LOBE: The right lobe of the thyroid gland measures 4.2 cm x 1.7 cm x 2.1 cm. There is a homogeneous echotexture. Multiple tiny cystic nodules are seen in the right lobe. The largest measures 6 mm x 7 mm x 3 mm. LEFT LOBE: The left lobe of the thyroid gland measures 3.8 cm x 1.7 cm x 1.1 cm. There is a homogeneous echotexture. There are multiple small hypoechoic solid nodules in the upper and midpole of the left lobe of the thyroid. The larger measures 5 mm x 5 mm x 3 mm. ISTHMUS: The isthmus measures 2 mm. Inferior to the left lobe of the thyroid, there is a 2.7 cm x 1.1 cm x 0.7 cm cylindrical-appearing hypoechoic nodular density suggestive of possible left parathyroid adenoma. Small bilateral cervical lymph nodes are seen. US/Thyroid IMPRESSION: Multiple tiny cysts are seen in the right lobe of the thyroid. Multiple subcentimeter hypoechoic solid nodule seen in the left lobe. Findings suggestive of a left parathyroid adenoma measuring 2.7 cm x 1.1 cm by 0.7 cm inferior to the left lobe of the thyroid Electronically Signed: Miguel Angel Aragon MD at 15:05 EDT , Service support ,
--- NOTE | 2021-05-01 13:20 | BD_ITS ---
STUDY: DUAL ENERGY X-RAY ABSORPTIOMETRY / DXA REASON FOR EXAM: Female, 56 years old. Hyperparathyroidism TECHNIQUE: Bone Mineral Density (BMD) measurements of lumbar spine and bilateral hips were obtained. COMPARISON: None. FINDINGS: Lumbar Spine (L1-L4): g/cm2 (0.762) / T-score (-2.6) / Z-score (-1.3) Findings are suggestive of osteoporosis with a high fracture risk. Left Femur Total: g/cm2 (0.595) / T-score (-2.8) / Z-score (-2.0) Left Femoral Neck: g/cm2 (0.489) / T-score (-3.2) / Z-score (-2.0) Right Femur Total: g/cm2 (0.627) / T-score (-2.6) / Z-score (-1.7) Right Femoral Neck: g/cm2 (0.494) / T-score (-3.2) / Z-score (-2.0) BD/Dexa Bone Density Study IMPRESSION: The patient is considered osteoporotic as outlined below according to World Nadir Organization (WHO) criteria with a high fracture risk. Reference Information: The T-score is the number of standard deviations above or below the standard which is normal for young adults at their peak bone mineral density. The World Health Organization (WHO) interprets the T-scores as follows: Above -1 Normal bone density Between -1 and -2.5 Osteopenia Equal to / or below -2.5 Osteoporosis As a practical clinical guideline, osteopenia may be graded as follows: Mild -1 through -1.5 Moderate -1.6 through -2.0 Severe -2.1 through -2.4 The Z-score is the number of standard deviations above or below age-matched controls. A Z-score of less than -1.5 would be considered abnormal. References: 1. NIH Osteoporosis and Related Bone Diseases www osteo.org 2. International Society for Clinical Densitometry www iscd.org 3. National Osteoporosis Foundation www nof.org Electronically Signed: Miguel Angel Aragon MD at 14:46 EDT , Service support ,
== END ==
PROVIDERS: PCP Family Medicine; Visit Provider Physician Assistant
DX: E21.3 Hyperparathyroidism, unspecified (principal); M81.0 Age-related osteoporosis without current pathological fracture
CPT/HCPCS: 76536; 77080

== ENCOUNTER 2021-05-11 09:03 | Observation (INO) | payer MEDICAID, SELFPAY ==
[2021-05-11] VITALS (13 sets, daily range): BP systolic 82–140; BP diastolic 43–74; PULSE 58–70; RESP 16–18; TEMP 36.9–37.3; O2SAT 95–100; BMI 18.0
--- NOTE | 2021-05-11 06:09 | EKG12_ITS ---
Test Reason : PRE-OP Blood Pressure : / mmHG Vent. Rate : 057 BPM Atrial Rate : 057 BPM P-R Int : 164 ms QRS Dur : 084 ms QT Int : 418 ms P-R-T Axes : 067 046 046 degrees QTc Int : 406 ms Sinus bradycardia Otherwise normal ECG No previous ECGs available Confirmed by ADRYAN PAUL, PERLA ([id number]), technical writer and editor WANDA PUGA ([id number]) on 05/22/2021 10:26:49 AM Referred By: Arnie Mac Confirmed By:PERLA CORNELIUS MD
[2021-05-11] MEDS: Lactated Ringers 1,000 ML 100 ML IV ×3 (06:35→18:45)
[2021-05-11 06:42] LABS: Hematocrit 38.6 % (37-47); Hemoglobin 12.7 g/dL (12.0-15.0); Mean Corp Hgb Conc 32.9 g/dL (32-36); Mean Corpuscular Hgb 28.4 pg (27.0-32.0); Mean Corpuscular Volume 86.4 fL (81-99); Mean Platelet Vol. 10.1 fl (6.2-12.0); Platelet Count 334 K/mm3 (150-450); RBC Distribution Width CV 13.3 % (11.6-14.6); RBC Distribution Width SD 42.2 fl (35.1-43.9); Red Blood Count 4.47 M/mm3 (4.2-5.4); White Blood Count 9.9 K/mm3 (4.4-11.0)
--- NOTE | 2021-05-11 06:49 | HP.PCM_ITS ---
History and Physical Date of Admission: 05/11/21 Date of Service: 05/04/21 MR#:[id number]:[id number]: DENILSON [facility] #:[id number]:1965 Provider:Flex Noriega/Sex: 56/F [facility] Int[facility] Intake Visit Reasons: F/U RESULTS Chief Complaint: Thyroid consult Allergies codeine Adverse Reaction (Verified 05/04/21 13:11) blacked out midazolam [From Versed] Adverse Reaction (Verified 05/04/21 13:11) Nausea/vomiting nalbuphine [From Nubain] Adverse Reaction (Verified 05/04/21 13:11) Nausea/vomiting Medications rosuvastatin [Crestor] 5 mg PO DAILY 12/12/20 [History Confirmed 05/04/21] sertraline [Zoloft] 25 mg PO DAILY 12/12/20 [History Confirmed 05/04/21] fluocinonide 0.05 % topical cream 1 applic TOPICAL BID-QID PRN 01/04/21 [History Confirmed 05/04/21] fluticasone propionate 50 mcg/actuation nasal spray,suspension gm INTRANASAL 01/23/21 [History Confirmed 05/04/21] ofloxacin 0.3 % eye drops 1 drp OPHTHALMIC (EYE) Q4H ml 01/23/21 [History Confirmed 05/04/21] cinacalcet 90 mg tablet 90 mg PO BID #60 tab 03/29/21 [Rx Confirmed 05/04/21] ascorbic acid (vitamin C) 250 mg tablet 250 mg PO DAILY 04/09/21 [History Confirmed 05/04/21] cholecalciferol (vitamin D3) 75 mcg (3,000 unit) tablet 75 mcg PO DAILY 04/09/21 [History Confirmed 05/04/21] zoledronic acid 4 mg/5 mL intravenous solution 4 mg .ROUTE ONCE #5 ml 04/09/21 [Rx Confirmed 05/04/21] ondansetron HCl 4 mg tablet 4 mg PO Q6H #10 tab 05/04/21 [Rx Confirmed 05/04/21] PFSH Medical History High cholesterol History of anxiety Hypercalcemia Hyperparathyroidism Smoker Vitamin D deficiency Surgical History History of cholecystectomy History of hysterectomy Family History Mother Arthritis Heart disease Hypertension CVA (cerebral vascular accident) Skin cancer Father Arthritis Heart disease Social History Smoking Status: Former smoker alcohol intake: never substance use type: does not use what type of physical activity do you participate in: none HPI HPI HPI: HPI: DENILSON TERRY, is a 56 F who presents to the office today for follow-up of hyperparathyroidism after undergoing DEXA scan and thyroid ultrasound. They are referred from Dr. Sony Girard of endocrinology. Patient has no history of osteopenia or osteoporosis but has never received a DEXA scan. She states since her visit 2 weeks ago she has experienced rather frequent vomiting. She states this occurs in both the mornings and the evenings. She feels like she cannot eat a complete meal because the food that she consumes just sits in her stomach. She further adds laying down is the worst thing I can do. Immediately after lying flat she begins vomiting and experiences a very sour aftertaste. She also notes some pain in her neck after these episodes of vomiting. Along with these GI symptoms, Ms. Terry reports constipation. She states she is having a bowel movement approximately once per day but this requires a lot of straining and the result is very hard, little pellets. She is not taking any medications for either her nausea/vomiting or constipation. Patient has no history of pathologic fractures. Patient has no history of kidney stones. Patient has no history of frequent dental caries or chipped teeth. Patient has no history of brittle fingernails. Patient has history of GERD which she states was diagnosed several years ago but has been recently much worse. She has experienced some success with placing herself on her GERD diet. This consists of restricting fats, fried foods, and carbonated beverages. Patient has no history of hypertension. Additional symptoms include: Extreme fatigue (patient states this limits her to only being up 4 hours a day), emotional lability, and profound difficulty with concentrating. She says she used to be an avid puzzle maker prior to the onset of her hypercalcemia but now finds it difficult to complete puzzles of any size. Patient has no history of prior radiation exposure. Patient has possible family history of other endocrinopathies stating that her father also dealt with hypercalcemia, but she states this was never linked to a parathyroid source and was found during the time of a concurrent cancer diagnosis. Patient's current labs are calcium: 13.6 mg/dL on 03/28/2021 (range of 11.1-14.8 since November 2020), Vitamin D: 39.1 ng/mL on 03/28/2021, Ionized calcium: 9.3mg/dL on 12/08/2020, PTH: 335 pg/mL on 01/23/2021 (range of 3 21-5 30 since November 2020), Phosphorus: Not available Current medications include: Tammy Calciferol 75 mcg daily, Sensipar 90 mg twice daily, and recent infusion of zoledronic acid on 04/09/2021. Imaging as been done sestamibi 12/13/2020 and was nonlocalizing for parathyroid adenoma. Patient has not had renal imaging. Exam Const General: cooperative, comfortable and no acute distress Orientation: alert, awake and oriented x3 Resp Effort & Inspection: normal respiratory effort Cardio Rate: regular rate Rhythm: regular rhythm Assessment and Plan Assessment and Plan (1) Hyperparathyroidism: Status: Acute Comment: Patient with diagnosis of primary hyperparathyroidism biochemically. She is quite symptomatic with profound fatigue and concentration difficulties. She returns today with evidence of osteoporosis in her DEXA. Both femoral necks have a T score of -3.2. She does confirm that she has never had a bony frac ture. Fortunately, her thyroid ultrasound appears to be localizing to the left neck for a probable parathyroid adenoma. This correlates with my own bedside ultrasound during her consultation visit. Based on this information, I would like to take the patient as soon is reasonable/feasible for parathyroidectomy. However, she also describes nausea and vomiting which suggest worsening of her GERD with further questioning. Additionally she describes significant constipation issues. Please see below for recommended treatment Plan - Dr. Arnie Mac MD: We will plan for minimally invasive parathyroidectomy versus subtotal parathyroidectomy with possible thyroid lobectomy. This case will be done with intraoperative PTH assay and intraoperative nerve monitoring. (2) GERD (gastroesophageal reflux disease): Status: Acute Qualifiers: Esophagitis presence: esophagitis presence not specified Qualified Code(s): K21.9 - Gastro-esophageal reflux disease without esophagitis Comment: Patient with worsening of her GERD despite dietary modifications. I suspect this is likely related to her hypercalcemia. Plan - Dr. Arnie Mac MD: ?Bywt-ami-icuftez Pepcid for symptoms and refrain from lying flat after meals ?Continue dietary modifications (3) Constipation: Status: Acute Qualifiers: Constipation type: unspecified constipation type Qualified Code(s): K59.00 - Constipation, unspecified Comment: Likely multifactorial with some dehydration, hypercalcemia, other Plan - Dr. Arnie Mac MD: Patient advised to begin gflp-zpf-tyxigrz senna and remain conscientious about adequate fluid intake (4) Nausea & vomiting: Status: Acute Qualifiers: Vomiting Intractability: unspecified Vomiting type: unspecified Qualified Code(s): R11.2 - Nausea with vomiting, unspecified Comment: With patient's history, this seems most closely connected to her GERD problems. Plan - Dr. Arnie Mac MD: ?Managed GERD symptoms with [id number] Pepcid and dietary modifications ?Zofran prescribed for intractable nausea (4 mg every 6 hours as needed) Plan Details Other Medications: New: ondansetron HCl (Zofran) 4 mg PO Q6H 10 tabs 0RF H&P reviewed, only changes noted from prior encounter as recapitulated above patient has ongoing vomiting that she is related to her severe reflux. Otherwise she denies any questions regarding today's procedure. Peripheral PTH pending. Plan to proceed with parathyroidectomy versus subtotal parathyroidectomy with possible thyroid lobectomy.
[2021-05-11 06:57] LABS: Anion Gap 5 (5-15); BUN 6 mg/dL (7-18); BUN/Creat Ratio 10.6 RATIO (10-20); Calcium,Total 13.4 mg/dL (8.5-10.1); Chloride 105 mmol/L (98-107); Creatinine, Serum 0.57 mg/dL (0.55-1.02); EST Glomerular Filtration Rate 116 mL/min (>60); Est Glom Filt Rate - Afr Amer 141 mL/min (>60); Estimated Creatinine Clearance 67.59 ml/min; Glucose 96 mg/dL (74-106); Potassium 2.2 mmol/L (3.5-5.1); Sodium Level 141 mmol/L (136-145)
[2021-05-11 07:08] LABS: Magnesium 1.9 mg/dL (1.6-2.6)
[2021-05-11 07:24] LABS: Albumin, Serum 3.5 g/dL (3.2-5.0)
--- NOTE | 2021-05-11 07:55 | SUR.PREOP ---
awaiting potassium level redraw. first was low- 2.2. surgery on hold at this time. dr rivera has talked with pt
[2021-05-11 08:05] LABS: Potassium 2.3 mmol/L (3.5-5.1)
[2021-05-11] MEDS: Potassium Chloride 10mEq/100mL 10 MEQ/100 ML IV.SOLN. 100 MEQ IV BOLUS ×4 (09:53→12:56)
--- NOTE | 2021-05-11 10:18 | SUR.PREOP ---
Patient is being monitored in PACU bay while receiving Potassium IV infusion. See MAR. VSS. Patient resting comfortably. A &O x 4. Lungs CTA. Denies pain. Given zofran 4mg per order. Call light at bedside. Will cont to monitor while awaiting PCU bed availability. Patient family updated and aware.
--- NOTE | 2021-05-11 14:46 | SUR.PREOP ---
POTASSIUM SERUM DRAWN COMPLETED. (AFTER 40MeQ iv INFUSION. STILL AWAITING k+ FROM PHARMACY.
[2021-05-11] MEDS: Potassium Chloride Oral Tablet 20 MEQ 60 MEQ PO ×2 (14:52→18:57)
[2021-05-11 15:05] LABS: Potassium 2.8 mmol/L (3.5-5.1)
[2021-05-11] MEDS: Sertraline 50 MG Tablet PO (15:21)
--- NOTE | 2021-05-11 16:42 | PCM.PN.HOSP ---
Subjective Subjective 56-year-old female presents to the hospital for elective parathyroidectomy secondary to hyperparathyroidism. Calcium is at baseline 13.4, however today on preop testing she was found to have a potassium of 2.2 on recheck was 2.3. She received 40 mEq of potassium this morning via IV and then was also given 60 p.o. once that was completed. However at the time that the p.o. dose was given the repeat BMP was obtained and demonstrated a potassium of 2.8. She likely has depletion in her potassium secondary to frequent vomiting over the last 2 weeks, this is supported by her elevated bicarbonate. She states that she has difficulty lying flat secondary to having immediate episodes of emesis at that time. Objective Data Objective Data Vital Signs: Vital Signs Temp Pulse Resp BP Pulse Ox 98.5 F 60 16 133/54 H 100 05/11/21 15:47 05/11/21 15:47 05/11/21 15:47 05/11/21 15:47 05/11/21 15:47 Oxygen Delivery Method Room Air Weight: 87 lb 11.904 oz Body Mass Index (BMI) 18.0 Intake & Output: Intake and Output for Last 24 Hours 05/10/21 05/11/21 05/12/21 03:59 03:59 03:59 Intake Total 2400 / 2400 Balance 2400 / 2400 Medical Nutrition Assessment Dietitian: Malnutrition Criteria Met Start: 05/11/21 16:41 Freq: Status: Active Protocol: Document 05/11/21 16:42 AG (Rec: 05/11/21 16:42 [id number]) Nutrition Malnutrition Evidence of Malnutrition Exists Yes Malnutrition (severe): Acute Illness/Injury Evidenced By Suboptimal Energy Intake ( Severe),Weight Loss (Severe) Clinical Problem Acute Disease or Injury Related Malnutrition Etiology severe, acute malnutrition r/t inadequate energy intake d/t intractable nausea/emesis Signs/Symptoms as evidenced by unintentional wt loss of 10.3#/10.5% wt loss x 2 weeks; estimated PO intake meeting <50% of estimated nutritional needs >5 days. Status Active Problem Recommendation Dietitian Recommendations/Changes continue regular diet as tolerated, will provide ensure clear w/ meals for additional calories/protein if consumed. Lab / Micro Data Result Diagrams: 05/11/21 06:39 05/12/21 05:40 Labs: Laboratory Results - last 24 hr 05/11/21 06:39: WBC 9.9, RBC 4.47, Hgb 12.7, Hct 38.6, MCV 86.4, MCH 28.4, MCHC 32.9, RDW Std Deviation 42.2, RDW Coeff of Tanner 13.3, Plt Count 334, MPV 10.1 05/11/21 06:39: Sodium 141, Potassium 2.2 L*, Chloride 105, Carbon Dioxide 31.0, Anion Gap 5, BUN 6 L, Creatinine 0.57, Estim Creat Clear Calc 67.59, Est GFR (MDRD) Af Amer 141, Est GFR (MDRD) Non-Af 116, BUN/Creatinine Ratio 10.6, Glucose 96, Calcium 13.4 H* 05/11/21 06:39: PTH Intact 643.0 H 05/11/21 06:39: Magnesium 1.9 05/11/21 06:39: Albumin 3.5 05/11/21 07:50: Potassium 2.3 L* 05/11/21 14:45: Potassium 2.8 L Physical Exam Const alert, oriented x3 and no apparent distress General Appearance: cooperative HEENT normocephalic Mouth: dry mucous membranes Eyes PERRL, EOMs intact bilaterally and conjunctivae normal Neck supple and no JVD Resp normal respiratory effort, no retractions, no use of accessory muscles and clear to auscultation bilaterally Auscultation: Negative for crackles, rales, rhonchi or wheezes Cardio regular rate, regular rhythm, S1 normal heart sound, S2 normal heart sound and no murmurs GI soft to palpation, non-tender and non-distended; Negative for hepatosplenomegaly Extremity no clubbing, cyanosis or edema Skin no rashes or lesions noted Neuro no focal motor deficits and no sensory deficits noted Psych affect normal Appearance: appropriate Assessment & Plan Assessment/Plan (1) Nausea & vomiting: QUALIFIERS: Vomiting Intractability: unspecified Vomiting type: unspecified Qualified Code(s): R11.2 - Nausea with vomiting, unspecified (2) Hypokalemia: PLAN: 1. Hypokalemia secondary to significant emesis -We will continue to replace her potassium, magnesium was normal and will check a phosphorus -Will recheck BMP in the morning -Once potassium is stable and as long as her emesis resolves, can plan on p.o. potassium supplementation until surgery 2. Hyperparathyroidism -Unfortunately surgery got pushed back from today and will be next Friday DVT: Ambulation Charges/Coding Visit Charges OBSV E&M: 34146 Subsequent observation care L2
--- NOTE | 2021-05-11 17:41 | PCS.PANDOC ---
PANDEMIC DOCUMENTATION INITIATED: Date: 05/11/2021 Time: 4595
[2021-05-11] MEDS: Famotidine 200 MG/20 ML MDV 20 MG in 0.9% Normal Saline (Pres. free 8 ML 300 MG IV (21:54)
[2021-05-11] MEDS: Cinacalcet HCl 30 MG Tablet 90 MG PO (21:54)
[2021-05-12 03:00] VITALS: PULSE 52
[2021-05-12] MEDS: Ondansetron 4 MG/2 ML Vial IV (03:31)
[2021-05-12 03:58] VITALS: BP 139/91; PULSE 85; RESP 18; TEMP 36.1; O2SAT 93
[2021-05-12] MEDS: Lactated Ringers 1,000 ML 100 ML IV (05:58)
[2021-05-12 07:21] LABS: Anion Gap 4 (5-15); BUN 8 mg/dL (7-18); BUN/Creat Ratio 11.8 RATIO (10-20); Calcium,Total 13.7 mg/dL (8.5-10.1); Chloride 117 mmol/L (98-107); Creatinine, Serum 0.68 mg/dL (0.55-1.02); EST Glomerular Filtration Rate 95 mL/min (>60); Est Glom Filt Rate - Afr Amer 115 mL/min (>60); Estimated Creatinine Clearance 56.66 ml/min; Glucose 131 mg/dL (74-106); Magnesium 2.3 mg/dL (1.6-2.6); Potassium 4.2 mmol/L (3.5-5.1); Sodium Level 147 mmol/L (136-145)
[2021-05-12 07:30] VITALS: PULSE 64
[2021-05-12] MEDS: Atorvastatin Calcium 10 MG Tablet PO (08:34)
[2021-05-12] MEDS: Cinacalcet HCl 30 MG Tablet 90 MG PO (08:34)
[2021-05-12 08:35] VITALS: BP 135/79; PULSE 65; RESP 16; TEMP 36.8; O2SAT 96
[2021-05-12] MEDS: Cholecalciferol (VIT D3) 25 MCG TABLET (1,000 UNITS) 75 MCG PO (08:35)
[2021-05-12] MEDS: Famotidine 200 MG/20 ML MDV 20 MG in 0.9% Normal Saline (Pres. free 8 ML 300 MG IV (08:38)
--- NOTE | 2021-05-12 11:11 | PCM.PN.HOSP ---
Subjective Subjective Feels little bit better today, still nauseated but tolerating a bland diet Objective Data Objective Data Vital Signs: Vital Signs Temp Pulse Resp BP Pulse Ox 98.2 F 65 16 135/79 H 96 05/12/21 08:35 05/12/21 08:35 05/12/21 08:35 05/12/21 08:35 05/12/21 08:35 Oxygen Delivery Method Room Air Weight: 87 lb 11.904 oz Body Mass Index (BMI) 18.0 Intake & Output: Intake and Output for Last 24 Hours 05/11/21 05/12/21 05/13/21 03:59 03:59 03:59 Intake Total 3312.33 / 3312.33 761.67 / 761.67 Balance 3312.33 / 3312.33 761.67 / 761.67 Medical Nutrition Assessment Dietitian: Malnutrition Criteria Met Start: 05/11/21 16:41 Freq: Status: Active Protocol: Document 05/11/21 16:42 AG (Rec: 05/11/21 16:42 [id number]) Nutrition Malnutrition Evidence of Malnutrition Exists Yes Malnutrition (severe): Acute Illness/Injury Evidenced By Suboptimal Energy Intake ( Severe),Weight Loss (Severe) Clinical Problem Acute Disease or Injury Related Malnutrition Etiology severe, acute malnutrition r/t inadequate energy intake d/t intractable nausea/emesis Signs/Symptoms as evidenced by unintentional wt loss of 10.3#/10.5% wt loss x 2 weeks; estimated PO intake meeting <50% of estimated nutritional needs >5 days. Status Active Problem Recommendation Dietitian Recommendations/Changes continue regular diet as tolerated, will provide ensure clear w/ meals for additional calories/protein if consumed. Lab / Micro Data Result Diagrams: 05/11/21 06:39 05/12/21 05:40 Labs: Laboratory Results - last 24 hr 05/11/21 14:45: Potassium 2.8 L 05/12/21 05:40: Sodium 147 H, Potassium 4.2, Chloride 117 H, Carbon Dioxide 26.0, Anion Gap 4 L, BUN 8, Creatinine 0.68, Estim Creat Clear Calc 56.66, Est GFR (MDRD) Af Amer 115, Est GFR (MDRD) Non-Af 95, BUN/Creatinine Ratio 11.8, Glucose 131 H, Calcium 13.7 H*, Phosphorus 1.0 L*, Magnesium 2.3 Physical Exam Const alert, oriented x3 and no apparent distress General Appearance: cooperative HEENT normocephalic and moist oral mucous membranes Eyes PERRL, EOMs intact bilaterally and conjunctivae normal Neck supple and no JVD Resp normal respiratory effort, no retractions, no use of accessory muscles and clear to auscultation bilaterally Auscultation: Negative for crackles, rales, rhonchi or wheezes Cardio regular rate, regular rhythm, S1 normal heart sound, S2 normal heart sound and no murmurs GI soft to palpation, non-tender and non-distended; Negative for hepatosplenomegaly Extremity no clubbing, cyanosis or edema Skin no rashes or lesions noted Neuro no focal motor deficits and no sensory deficits noted Psych affect normal Appearance: appropriate Assessment & Plan Assessment/Plan (1) Nausea & vomiting: QUALIFIERS: Vomiting type: unspecified Vomiting Intractability: unspecified Qualified Code(s): R11.2 - Nausea with vomiting, unspecified (2) Hypokalemia: PLAN: 1. Hypokalemia secondary to significant emesis -Potassium is normal at 4.3 magnesium is normal at 2.3 -Phosphorus is low at 1, however her sodium is little bit high at 147 and since potassium is 4.2 we will opt for oral Neutra-Phos packets -We will encourage her to stay 1 more day to recheck phosphorus in the morning 2. Hyperparathyroidism -Unfortunately surgery got pushed back from today and will be next Friday DVT: Ambulation Charges/Coding Visit Charges OBSV E&M: 89249 Subsequent observation care L2
--- NOTE | 2021-05-12 12:01 | PCM.DC ---
Discharge Instructions Diet Discharge Diet: No restrictions Activity Discharge Activity: Return to Normal Activity Dressing / Incision Call your doctor if you observe: Fever of 101 or Higher, Shortness of breath, Dizziness, Fainting spells, Swelling in the ankles, Chest pain and Increased palpitations (irregular heartbeat) Follow Up Care Test Results: Test results from this visit will be discussed in further detail at your follow-up appointment, if applicable. Discharge Plan Admission Admit Date/Time: 05/11/21 09:03 Attending Provider: Brad Card Primary Care Provider: Robinson Patiño Instructions Additional Instructions / Restrictions: Obtain blood work on Friday including a phosphorus. Plan for surgery next Friday Discharge Orders/Prescriptions Prescriptions: New potassium, sodium phosphates [Phos-NaK] 280-160-250 mg powder in packet 1 packet PO 4X/DAY 2 Days Qty: 8 RF: 0 potassium chloride 20 mEq tablet extended release 20 meq PO DAILY Qty: 10 RF: 0 Continued cholecalciferol (vitamin D3) 75 mcg (3,000 unit) tablet 75 mcg PO DAILY RF: 0 sertraline [Zoloft] 25 mg tablet 50 mg PO DAILY RF: 0 rosuvastatin [Crestor] 5 mg tablet 5 mg PO DAILY RF: 0 cinacalcet [Sensipar] 90 mg Tablet 90 mg PO BID RF: 0 ondansetron HCl [Zofran] 4 mg Tablet 4 mg PO Q6H PRN (Reason: Nausea) RF: 0 famotidine [Pepcid] 20 mg Tablet 20 mg PO DAILY RF: 0 Referrals / Follow Up: Robinson Patiño MD [Primary Care Provider] - Within 1 Week Arnie Mac MD [STAFF PHYSICIAN] - See Referral Note (Plan for OR on Friday for parathyroidectomy) Disposition Disposition (needs filled in before D/C Order can be placed): Home, Self Care
[2021-05-12 12:20] VITALS: BP 139/79; PULSE 62; RESP 18; TEMP 36.8; O2SAT 98
== END 2021-05-12 11:58 | disposition home or self-care (01) ==
LOC: SDC 17:07 → PCU 17:07
PROVIDERS: Anesthesiology; Admitting Provider Surgery; PCP Family Medicine; Referring Provider Surgery; Visit Provider Family Medicine
DX: E21.0 Primary hyperparathyroidism (principal); R11.2 Nausea with vomiting, unspecified; K59.00 Constipation, unspecified; K21.9 Gastro-esophageal reflux disease without esophagitis; E55.9 Vitamin D deficiency, unspecified; F41.9 Anxiety disorder, unspecified; E78.00 Pure hypercholesterolemia, unspecified; Z87.891 Personal history of nicotine dependence; Z79.899 Other long term (current) drug therapy; E87.6 Hypokalemia
CPT/HCPCS: 36415; 80048; 82040; 83735; 83970; 84100; 84132; 85027; 93005; 96361; 96374; 96375; 96376; 97802; 99218; J7120; G0378; J2405; J3490

== ENCOUNTER → 2021-05-15 14:37 | Outpatient (CLI) | payer MEDICAID, SELFPAY ==
[2021-05-15 15:08] LABS: Magnesium 1.8 mg/dL (1.6-2.6); Phosphorus 2.2 mg/dL (2.5-4.9); Potassium 3.7 mmol/L (3.5-5.1)
== END ==
PROVIDERS: PCP Family Medicine; Referring Provider Surgery; Visit Provider Surgery
DX: E21.3 Hyperparathyroidism, unspecified (principal); E87.6 Hypokalemia; R11.2 Nausea with vomiting, unspecified
CPT/HCPCS: 36415; 83735; 84100; 84132

== ENCOUNTER 2021-05-16 05:50 | Day surgery (SDC) | payer MEDICAID, SELFPAY ==
[2021-05-14 18:35] LABS: Anion Gap 4 (5-15); BUN 9 mg/dL (7-18); BUN/Creat Ratio 14.8 RATIO (10-20); Chloride 108 mmol/L (98-107); Creatinine, Serum 0.61 mg/dL (0.55-1.02); EST Glomerular Filtration Rate 107 mL/min (>60); Est Glom Filt Rate - Afr Amer 130 mL/min (>60); Glucose 75 mg/dL (74-106); Magnesium 1.8 mg/dL (1.6-2.6); Phosphorus 2.2 mg/dL (2.5-4.9); Potassium 3.5 mmol/L (3.5-5.1); Sodium Level 140 mmol/L (136-145)
[2021-05-14 18:43] LABS: Calcium,Total 13.9 mg/dL (8.5-10.1)
[2021-05-15 07:28] LABS: PTHIN 619.2 pg/mL (18.4-80.1)
[2021-05-16] VITALS (18 sets, daily range): BP systolic 95–154; BP diastolic 40–85; PULSE 51–84; RESP 16–18; TEMP 36.1–36.8; O2SAT 92–99; BMI 18.4
--- NOTE | 2021-05-16 | PARA_PTH ---
PATIENT: DENILSON TERRY LOC: [facility] [place] U#:[id number] AGE/SX: 56/F ROOM: RE05/16/[address]: Dr. Arnie Mac MD : 1965 BED: DIS: 05/16/2021 SPEC #: [id number] RECD: 05/16/21 09:19 STATUS: CHRISTA THOMASIssa #: [id number] SEBASTIÁN: 05/16/21 00:[address]: Arnie Mac DEPT: SURGICAL PATHOLOGY RECD BY: Alcira Yanez ENTERED: 05/16/21 10:15 SP TYPE: PARATHY OTHR DR: Dr. Robinson Patiño MD Tissues: A - Parathyroid B - Parathyroid Procedures: Frozen Section (charge) Frozen Section Add'l ([facility]) Surgery Specimen Level IV HEADER OPERATION: Minimally invasive parathyroidectomy and intraoperative PTH PRE-OP DIAGNOSIS: Hyperparathyroidism TISSUE SUBMITTED: A - Parathyroid tissue, FS, B - Parathyroid FROZEN SECTION DIAGNOSIS A. Parathyroid, biopsy: A small parathyroid tissue. Predominantly lymphoid tissue, consistent with thymic tissue. B. Parathyroid, biopsy: Hyperplastic parathyroid tissue. SJ:rg 05/16/2021 MICROSCOPIC DIAGNOSIS A. Parathyroid tissue, biopsy: Parathyroid tissue. Benign thymic tissue. See comment. B. Parathyroid, biopsy: Hyperplastic parathyroid tissue (2 gm). SJ:rg 05/17/2021 COMMENT A. The parathyroid tissue measures 0.5 cm in greatest dimension. The specimen predominantly consists of benign thymic tissue. Clinical correlation and appropriate follow up are necessary. This case has been reviewed in consultation with Dr. Rao who concurs with the above diagnosis. MICROSCOPIC DESCRIPTION Slides are reviewed. GROSS DESCRIPTION A - Received fresh for frozen section diagnosis labeled with the patient's name is a specimen designated parathyroid. The specimen consists of a piece of adipose tissue weighing 2.1 gm and measuring 7 x 1 x 0.5 cm. One small nodule is noted measuring 0.5 x 0.5 x 0.2 cm and weighing 0.1 gm. The entire specimen is submitted for frozen section diagnosis in three cassettes as follows: 1 ? small nodule with adjacent adipose tissue, 2 & 3 ? rest of the specimen. B - Received fresh for frozen section diagnosis labeled with the patient's name is a specimen designated parathyroid. The specimen consists of a pink-red glandular tissue weighing 2 gm and measuring 3.4 x 1.5 x 0.6 cm. The specimen is bisected and submitted entirely in three cassettes as follows: 1 ? frozen section, 2 & 3 ? rest of the specimen. / SJ:rg 05/16/21 TC:5 CPT: 71093 x2, 40824 x2, 72281 x2
[2021-05-16] MEDS: Lactated Ringers 1,000 ML 100 ML IV ×2 (06:15→11:21)
--- NOTE | 2021-05-16 07:04 | PCM.HP.BLA ---
History and Physical Date of Admission: 05/16/21 History & Physical Exam05/11/21 0649MR#: [id number]:DENILSON TERRY JRep #:[id number]: [id number]: Arnie Mac MDPCP:Dr. Robinson Patiño MD Status:REG SDCLocation: [id number] History and Physical Date of Admission: 05/11/21 Date of Service: 05/04/21 MR#:[id number]:[id number]: DENILSON TERRY JRep #:[id number]:[id number] Provider:Dr. Arnie Mac MDAge/Sex: 56/F Location:[facility] [place].WSAStatus:Signed Intake Intake Visit Reasons: F/U RESULTS Chief Complaint: Thyroid consult Allergies codeine Adverse Reaction (Verified 05/04/21 13:11) blacked out midazolam [From Versed] Adverse Reaction (Verified 05/04/21 13:11) Nausea/vomiting nalbuphine [From Nubain] Adverse Reaction (Verified 05/04/21 13:11) Nausea/vomiting Medications rosuvastatin [Crestor] 5 mg PO DAILY 12/12/20 [History Confirmed 05/04/21] sertraline [Zoloft] 25 mg PO DAILY 12/12/20 [History Confirmed 05/04/21] fluocinonide 0.05 % topical cream 1 applic TOPICAL BID-QID PRN 01/04/21 [History Confirmed 05/04/21] fluticasone propionate 50 mcg/actuation nasal spray,suspension gm INTRANASAL 01/23/21 [History Confirmed 05/04/21] ofloxacin 0.3 % eye drops 1 drp OPHTHALMIC (EYE) Q4H ml 01/23/21 [History Confirmed 05/04/21] cinacalcet 90 mg tablet 90 mg PO BID #60 tab 03/29/21 [Rx Confirmed 05/04/21] ascorbic acid (vitamin C) 250 mg tablet 250 mg PO DAILY 04/09/21 [History Confirmed 05/04/21] cholecalciferol (vitamin D3) 75 mcg (3,000 unit) tablet 75 mcg PO DAILY 04/09/21 [History Confirmed 05/04/21] zoledronic acid 4 mg/5 mL intravenous solution 4 mg .ROUTE ONCE #5 ml 04/09/21 [Rx Confirmed 05/04/21] ondansetron HCl 4 mg tablet 4 mg PO Q6H #10 tab 05/04/21 [Rx Confirmed 05/04/21] PFSH Medical History High cholesterol History of anxiety Hypercalcemia Hyperparathyroidism Smoker Vitamin D deficiency Surgical History History of cholecystectomy History of hysterectomy Family History Mother Arthritis Heart disease Hypertension CVA (cerebral vascular accident) Skin cancer Father Arthritis Heart disease Social History Smoking Status: Former smoker alcohol intake: never substance use type: does not use what type of physical activity do you participate in: none HPI HPI HPI: HPI: DENILSON TERRY, is a 56 F who presents to the office today for follow-up of hyperparathyroidism after undergoing DEXA scan and thyroid ultrasound. They are referred from Dr. Sony Girard of endocrinology. Patient has no history of osteopenia or osteoporosis but has never received a DEXA scan. She states since her visit 2 weeks ago she has experienced rather frequent vomiting. She states this occurs in both the mornings and the evenings. She feels like she cannot eat a complete meal because the food that she consumes just sits in her stomach. She further adds laying down is the worst thing I can do. Immediately after lying flat she begins vomiting and experiences a very sour aftertaste. She also notes some pain in her neck after these episodes of vomiting. Along with these GI symptoms, Ms. Terry reports constipation. She states she is having a bowel movement approximately once per day but this requires a lot of straining and the result is very hard, little pellets. She is not taking any medications for either her nausea/vomiting or constipation. Patient has no history of pathologic fractures. Patient has no history of kidney stones. Patient has no history of frequent dental caries or chipped teeth. Patient has no history of brittle fingernails. Patient has history of GERD which she states was diagnosed several years ago but has been recently much worse. She has experienced some success with placing herself on her GERD diet. This consists of restricting fats, fried foods, and carbonated beverages. Patient has no history of hypertension. Additional symptoms include: Extreme fatigue (patient states this limits her to only being up 4 hours a day), emotional lability, and profound difficulty with concentrating. She says she used to be an avid puzzle maker prior to the onset of her hypercalcemia but now finds it difficult to complete puzzles of any size. Patient has no history of prior radiation exposure. Patient has possible family history of other endocrinopathies stating that her father also dealt with hypercalcemia, but she states this was never linked to a parathyroid source and was found during the time of a concurrent cancer diagnosis. Patient's current labs are calcium: 13.6 mg/dL on 03/28/2021 (range of 11.1-14.8 since November 2020), Vitamin D: 39.1 ng/mL on 03/28/2021, Ionized calcium: 9.3mg/dL on 12/08/2020, PTH: 335 pg/mL on 01/23/2021 (range of 3 21-5 30 since November 2020), Phosphorus: Not available Current medications include: Tammy Calciferol 75 mcg daily, Sensipar 90 mg twice daily, and recent infusion of zoledronic acid on 04/09/2021. Imaging as been done sestamibi 12/13/2020 and was nonlocalizing for parathyroid adenoma. Patient has not had renal imaging. Exam Const General: cooperative, comfortable and no acute distress Orientation: alert, awake and oriented x3 Resp Effort & Inspection: normal respiratory effort Cardio Rate: regular rate Rhythm: regular rhythm Assessment and Plan Assessment and Plan (1) Hyperparathyroidism: Status: Acute Comment: Patient with diagnosis of primary hyperparathyroidism biochemically. She is quite symptomatic with profound fatigue and concentration difficulties. She returns today with evidence of osteoporosis in her DEXA. Both femoral necks have a T score of -3.2. She does confirm that she has never had a bony fracture. Fortunately, her thyroid ultrasound appears to be localizing to the left neck for a probable parathyroid adenoma. This correlates with my own bedside ultrasound during her consultation visit. Based on this information, I would like to take the patient as soon is reasonable/feasible for parathyroidectomy. However, she also describes nausea and vomiting which suggest worsening of her GERD with further questioning. Additionally she describes significant constipation issues. Please see below for recommended treatment Plan - Dr. Arnie Mac MD: We will plan for minimally invasive parathyroidectomy versus subtotal parathyroidectomy with possible thyroid lobectomy. This case will be done with intraoperative PTH assay and intraoperative nerve monitoring. (2) GERD (gastroesophageal reflux disease): Status: Acute Qualifiers: Esophagitis presence: esophagitis presence not specified Qualified Code(s): K21.9 - Gastro-esophageal reflux disease without esophagitis Comment: Patient with worsening of her GERD despite dietary modifications. I suspect this is likely related to her hypercalcemia. Plan - Dr. Arnie Mac MD: ?[id number] Pepcid for symptoms and refrain from lying flat after meals ?Continue dietary modifications (3) Constipation: Status: Acute Qualifiers: Constipation type: unspecified constipation type Qualified Code(s): K59.00 - Constipation, unspecified Comment: Likely multifactorial with some dehydration, hypercalcemia, other Plan - Dr. Arnie Mac MD: Patient advised to begin qqwq-gsa-vybbuib senna and remain conscientious about adequate fluid intake (4) Nausea & vomiting: Status: Acute Qualifiers: Vomiting Intractability: unspecified Vomiting type: unspecified Qualified Code(s): R11.2 - Nausea with vomiting, unspecified Comment: With patient's history, this seems most closely connected to her GERD problems. Plan - Dr. Arnie Mac MD: ?Managed GERD symptoms with [id number] Pepcid and dietary modifications ?Zofran prescribed for intractable nausea (4 mg every 6 hours as needed) Plan Details Other Medications: New: ondansetron HCl (Zofran) 4 mg PO Q6H 10 tabs 0RF H&P reviewed, only changes noted from prior encounter as recapitulated above patient has ongoing vomiting that she is related to her severe reflux. Otherwise she denies any questions regarding today's procedure. Peripheral PTH pending. Plan to proceed with parathyroidectomy versus subtotal parathyroidectomy with possible thyroid lobectomy. 05/11/21 0651 <Electronically signed by Arnie Mac MD> Cosigner Signature (if applicable): CC: Dr. Arnie Mac MD; Dr. Robinson Patiño MD~Signed ADDENDUM by Dr. Arnie Mac MD on 05/11/21 at 0910 Addendum Patient's electrolytes were checked this morning and it appears that she has developed severe hypokalemia as response to intractable nausea and vomiting reported earlier. Given the severe potassium deficit, we are unable to move forward with this operation as planned. Patient will be admitted for correction of this potassium and medical optimization. She is tentatively rescheduled for 05/16/2021. She and her daughter were made aware of this clinical development and have expressed understanding. I have examined the patient the following changes are noted: Patient seen and examined this morning. She denies any further vomiting from 2 days ago. Labs were checked yesterday and were largely within normal limits save a phosphorus which was just low. She states that she feels well and denies any questions regarding the surgery. Postoperative precautions against hypocalcemia and stretching were reviewed. Plan to proceed with parathyroidectomy as discussed from surgical consultation note above.
[2021-05-16] MEDS: Bupivacaine Mpf 0.5% 30 ML VIAL (08:04)
[2021-05-16 10:02] LABS: PTHIN 147.8 pg/mL (18.4-80.1)
[2021-05-16 10:11] LABS: PTHIN 187.8 pg/mL (18.4-80.1)
[2021-05-16 10:17] LABS: PTHIN 3927.6 pg/mL (18.4-80.1)
[2021-05-16 10:34] LABS: PTHIN 42.6 pg/mL (18.4-80.1)
--- NOTE | 2021-05-16 11:05 | OP.PCM_ITS ---
Report of Operation Date of Procedure: 05/16/21 Pre-Operative Diagnosis: Primary hyperparathyroidism with probable superior gla nd adenoma Post-Operative Diagnosis: Same Surgery/Procedure Performed:: Minimally?invasive parathyroidectomy with intraoperative PTH and nerve monitoring Surgeon: Arnie Mac contract administration coordinator: Phuong Vieyra Type of Anesthesia: General/Supplemental Anesthesiologist: Gerry Duncan Estimated Blood Loss (mL): 50 Description of Procedure: After appropriate notification the preoperative holding area the patient was brought to the operating room. There she was positioned supine on the operating room table and general anesthetic was induced. She was intubated using a #7 NIMS endotracheal tube using a glidescope to confirm apposition of the tube electrodes against the vocal cords. The tube was then taped in place and the patient was positioned in neck extension with a gel roll underneath her shoulders. The other electrodes for the nerve monitoring system were placed at the level of the patient's sternum in proper orientation and secured with a Tegaderm. Patient's arms?that were tucked taking care to pad pressure points. Patient's neck was then prepped and draped in usual sterile fashion. Formal timeout was conducted to confirm patient, procedure, and a protocol for intraoperative PTH assay. Procedure was begun by identifying the skin crease closest to the cricoid cartilage and approximately 2 fingerbreadths above the sternal notch. Half percent bupivacaine was used to create a local block prior to incision. A 4 cm curvilinear incision was made along the skin crease and deepened through the subcutaneous tissue and platysma using electrocautery in a transverse orientation. The strap muscles then were opened along the median raphe in a longitudinal orientation. The areolar tissue between the straps and the anterior thyroid capsule largely bluntly swept away and any muscular connections to the anterior thyroid capsule were taken with the use of LigaSure. The middle thyroid vein was then divided to permit medialization of the left thyroid lobe. I quickly identified a long extension of thymic tissue beneath the inferior thyroid artery and assumed that our parathyroid adenoma was part of this tissue. I dissected this tissue out near the thyroid as well as into the anterior mediastinum and divided with LigaSure only tissue that was translucent. Thymic tissue was delivered from the anterior mediastinum with slow gentle traction and reaching its breaking point I came across it with the LigaSure device. On reexamination, however, I was not convinced that this represented a parathyroid adenoma. Still, it was sent for frozen section and pathology did confirm this represented primarily lymphoid tissue. A PTH level was obtained as well at this point in the operation and returned at a level of 3928?further indicating the adenoma remained in place. Therefore the tracheoesophageal groove was reexamined and I could clearly make out the esophagus but did not find any other mass lesions. As I examined the underside of the thyroid, however, there was evidence of a tubular structure that had previously been dismissed as a thyroid nodule but clearly represented our adenoma. Care was then taken to preserve the integrity of this gland as blunt dissection was used to remove its attachments to the thyroid gland. It did appear, however, that there was a crack in the distal tip of the gland and this bleeding is what indicated to me this represented something other than thyroid tissue. Once the parathyroid gland was removed, it was passed off the field for frozen section. I roz serial PTH levels at 10 minutes and 15 minutes post-gland excision from the left internal jugular vein using a 22-gauge needle. While we awaited these PTH draws, I attempted to obtain a nerve signal by opening the carotid sheath and identifying the vagus nerve. Unfortunately this did not yield a positive signal and anesthesia was gracious to recheck the position of the endotracheal tube against the cords using a glide scope. After this was repositioned and the nerve monitoring system was adjusted, I then dissected out the recurrent laryngeal nerve in the tracheoesophageal groove and got a confirmatory amplitude on her nerve monitor. The PTH levels gradually returned went to 148 in the 188 at 10 and 15 minutes ex vivo, respectively. Therefore an additional intraoperative level was drawn and this came back as 43. With this result, the surgical bed was examined for hemostasis. There was some slight oozing about the more proximal recurrent laryngeal nerve locations so I elected to apply a small piece of Surgicel and use gentle pressure to obtain hemostasis. The remainder of the neck was examined and once I was comfortable with the hemostasis, I began closure. The strap muscles were closed along the raphe using a running 2-0 Vicryl. The platysma muscle layer was reapproximated using an interrupted 3-0 Vicryl. Some additional local anesthetic was then instilled in the dermal layer before the skin was closed using a running 4-0 Monocryl in a subcuticular fashion. Dermabond was applied to seal the wound and Telfa and Tegaderm were applied as dressings. Patient was awoken from anesthetic and transferred to PACU without event. A PTH was drawn in PACU and returned at a level of 23. Given this lower PTH, the patient will be sent home with prophylactic calcium/vitamin D supplementation. Aftercare instructions were reviewed with the patient's daughter.
--- NOTE | 2021-05-16 11:06 | EX.PCM.DISCH ---
Discharge Instructions Diet Discharge Diet: No restrictions Activity Discharge Activity: May Not Drive (Until patient can safely turn head to check blind spots) and May Shower (First day after the operation) Ice area for (Minutes): 20 Lifting Restrictions: Less than 10 pounds for the first week after surgery Dressing / Incision Call your doctor if your incision/area has: Continuous Slow Oozing, Sudden Increased Bleeding, Increased Pain/ Swelling, Increased Redness and Swelling at the incision site Call your doctor if you observe: Numbness or Tingling (Particularly of the fingertips, toes, or about the mouth) Remove Dressing in: 1 day Cleanse incision/area with: Soap & Water Follow Up Care Please Follow Up With: Arnie Mac MD When: 2 weeks Test Results: Test results from this visit will be discussed in further detail at your follow-up appointment, if applicable. Discharge Plan Admission Primary Reason for Your Visit: Primary hyperparathyroidism Attending Provider: Arnie Mac Primary Care Provider: Robinson Patiño Instructions Patient Instructions: Thyroidectomy Post Op Discharge Orders/Prescriptions Prescriptions: New calcium carbonate-vitamin D3 [Calcium 500 With D] 500 mg(1,250mg) -400 unit tablet 1 tab PO TID Qty: 90 RF: 2 Continued cholecalciferol (vitamin D3) 75 mcg (3,000 unit) tablet 75 mcg PO DAILY RF: 0 sertraline [Zoloft] 25 mg tablet 50 mg PO DAILY RF: 0 rosuvastatin [Crestor] 5 mg tablet 5 mg PO DAILY RF: 0 ondansetron HCl [Zofran] 4 mg Tablet 4 mg PO Q6H PRN (Reason: Nausea) RF: 0 famotidine [Pepcid] 20 mg Tablet 20 mg PO DAILY RF: 0 potassium chloride 20 mEq tablet extended release 20 meq PO DAILY Qty: 10 RF: 0 Discontinued cinacalcet [Sensipar] 90 mg Tablet 90 mg PO BID RF: 0 No Action potassium, sodium phosphates [Phos-NaK] 280-160-250 mg powder in packet 1 packet PO 4X/DAY 2 Days Qty: 8 RF: 0 Referrals / Follow Up: Robinson Patiño MD [Primary Care Provider] - Disposition Disposition (needs filled in before D/C Order can be placed): Home, Self Care
[2021-05-16 12:12] LABS: PTHIN 23.3 pg/mL (18.4-80.1)
--- NOTE | 2021-05-16 16:56 | SUR.PHASEII ---
offered patient a scopolamine patch. pt refused. states she had one years ago and one pupil became dilated and she was unable to speak clearly.
[2021-05-16] MEDS: Metoclopramide 10 MG/2 ML Vial IV (18:20)
== END 2021-05-16 19:34 | disposition home or self-care (01) ==
LOC: SDC 05:51 → AC 05:51
PROVIDERS: PCP Family Medicine; Referring Provider Surgery; Visit Provider Surgery
PROC: (CPT 60500; principal; 2021-05-16 07:15)
DX: D35.1 Benign neoplasm of parathyroid gland (principal); E21.0 Primary hyperparathyroidism; E78.00 Pure hypercholesterolemia, unspecified; E87.6 Hypokalemia; K21.9 Gastro-esophageal reflux disease without esophagitis; K59.00 Constipation, unspecified; F41.9 Anxiety disorder, unspecified; R11.2 Nausea with vomiting, unspecified; Z79.899 Other long term (current) drug therapy; Z87.891 Personal history of nicotine dependence
CPT/HCPCS: 60500; 36415; 80048; 83735; 83970; 84100; 88305; 88331; 88332; J7120; J2405

== ENCOUNTER 2021-05-20 11:02 | Observation (INO) | payer MEDICAID, SELFPAY ==
[2021-05-20] VITALS (10 sets, daily range): BP systolic 141–165; BP diastolic 56–87; PULSE 57–75; RESP 14–18; TEMP 36.6–37.1; O2SAT 97–98; BMI 19.1; BMI 18.7
--- NOTE | 2021-05-20 12:00 | EKG12_ITS ---
Test Reason : Blood Pressure : / mmHG Vent. Rate : 063 BPM Atrial Rate : 063 BPM P-R Int : 158 ms QRS Dur : 070 ms QT Int : 382 ms P-R-T Axes : 053 012 034 degrees QTc Int : 390 ms Normal sinus rhythm Normal ECG Confirmed by ADRYAN PAUL, PERLA ([id number]), photo editor WANDA PUGA ([id number]) on 05/21/2021 12:56:36 PM Referred By: ASHUTOSH Confirmed By:PERLA CORNELIUS MD
[2021-05-20 12:22] LABS: Absolute Lymphocyte Count 1.57 X10^3/uL (0.83-4.51); Absolute Neutrophil Count 5.3 X10^3/uL (2.0-7.7); Basophil# 0.05 X10^3/uL; Basophil% 0.6 % (0-1); Eosinophils% 3.8 % (0-5); Hematocrit 32.1 % (37-47); Hemoglobin 10.6 g/dL (12.0-15.0); Lymphocyte # 1.57 X10^3/ul (0.83-4.51); Lymphocyte % 20.1 % (19-41); Mean Corpuscular Hgb 28.6 pg (27.0-32.0); Mean Corpuscular Volume 86.8 fL (81-99); Mean Platelet Vol. 10.4 fl (6.2-12.0); Monocyte# 0.58 X10^3/uL; Monocyte% 7.4 % (0-10); NRBC Flagged by Analyzer 0 % (0-5); Neutrophil % 67.7 % (47-70); Platelet Count 365 K/mm3 (150-450); RBC Distribution Width CV 13.9 % (11.6-14.6); White Blood Count 7.8 K/mm3 (4.4-11.0)
[2021-05-20 12:32] LABS: ALB/GLOB Ratio 0.9 RATIO (0.9-2.4); AST(SGOT) 26 U/L (15-37); Alanine Aminotransfer ALT/SGPT 107 U/L (13-56); Albumin, Serum 3.1 g/dL (3.2-5.0); Alkaline Phosphatase 94 U/L (45-117); Anion Gap 6 (5-15); BUN 10 mg/dL (7-18); Calcium,Total 10.3 mg/dL (8.5-10.1); Chloride 108 mmol/L (98-107); Creatinine, Serum 0.56 mg/dL (0.55-1.02); EST Glomerular Filtration Rate 119 mL/min (>60); Est Glom Filt Rate - Afr Amer 144 mL/min (>60); Estimated Creatinine Clearance 71.67 ml/min; Globulin 3.3 g/dL (2.2-4.2); Glucose 89 mg/dL (74-106); Potassium 3.8 mmol/L (3.5-5.1); Protein, Total 6.4 g/dL (6.4-8.2); Sodium Level 143 mmol/L (136-145); Troponin-I HS 20 pg/mL (3.0-54.0)
--- NOTE | 2021-05-20 12:48 | RAD_ITS ---
STUDY: X-RAY CHEST REASON FOR EXAM: Female, 56 years old. Cough TECHNIQUE: Single AP portable view of the chest. COMPARISON: 12/12/2020 FINDINGS: The lungs are clear and expanded. There is no demonstrated pleural abnormality. Normal size heart. Normal mediastinum and eldon. Normal visualized pulmonary arteries. Normal visualized aortic arch and descending thoracic aorta. Normal visualized thoracic spine. Normal visualized ribs, clavicles, and shoulders. There is no demonstrated abnormality of the visualized soft tissue structures of the upper abdomen. RAD/Chest 1 View (Portable) IMPRESSION: Normal x-ray examination of the chest. Electronically Signed: Orestes Dean MD at 13:24 EDT Tel , Service support ,
--- NOTE | 2021-05-20 13:53 | CON.PCM.SX_ITS ---
Assessment & Plan Assessment/Plan (1) S/P parathyroidectomy: PLAN: This is a 56-year-old female who is postoperative day 4 from a minimally invasive parathyroidectomy (left) who presents with a presyncopal event earlier today. Her operative site is well-healing without concerning exam findings. Her calcium is trending down from its zenith at 13.9 preoperatively to 10.3 ng/dL today. It is possible that patient experienced relative hypocalcemia since her baseline had been established so high, but this does not fully explain the presyncopal event that she experienced. I find it more likely that she has been restricting her food and water intake due to constipation and either had a vagal event related to hypoglycemia or dehydration. Still, given her recent anesthetic and possibility for cardiogenic cause she merits a full syncopal work-up. I will continue to follow. HPI Consult Data Date of Consult: 05/20/21 HPI Narrative HPI Narrative: DENILSON TERRY, is a 56 F who presents to [facility] with presyncopal event. She is postoperative day 4 from a minimally invasive parathyroidectomy. She reports feeling some numbness and tingling in her fingertips and feet this morning and took some Tums as I had advised perioperatively. She then took her regular dose of calcium when this tingling did not mindy. As she was sitting down to eat breakfast she felt tingling over her body and warmth. She states that things started to become black and she was unable to take a deep breath so she notified her mother, who is staying with her, of this change. It was at this point that her daughter was called and they brought her to the emergency room. Ms. Terry states that she has been restricting her food and liquid intake because of severe constipation that had preceded her operation. The perioperative nausea and vomiting is significantly improve as she has had no further episodes since the night of her operation. Her ER work-up is notable for laboratories which show a calcium of 10.3 ng/dL, stable anemia, and normal white count. [facility], [facility] Medical History (Updated 05/20/21 @ 00:00 by Background Daemon) Anxiety Former smoker Gastric reflux High cholesterol High cholesterol History of anxiety History of ulceration Hypercalcemia Hyperparathyroidism Shortness of breath on exertion Syncope Thyroid disease Vitamin D deficiency Wears dentures Wears glasses Home Medications rosuvastatin [Crestor] 5 mg PO DAILY 12/12/20 [History Last Taken 05/10/21] sertraline [Zoloft] 50 mg PO DAILY 12/12/20 [History Last Taken 05/10/21] cholecalciferol (vitamin D3) 75 mcg (3,000 unit) tablet 75 mcg PO DAILY 04/09/21 [History Last Taken 05/10/21] famotidine [Pepcid] 20 mg PO DAILY 05/09/21 [History Last Taken 05/10/21] potassium chloride 20 meq PO DAILY #10 tab 05/12/21 [Rx Last Taken Unknown] calcium carbonate-vitamin D3 [Calcium 500 With D] 1 tab PO TID #90 tab 05/16/21 [Rx Last Taken Unknown] Allergy/AdvReac Type Severity Reaction Status Date / Time scopolamine AdvReac Unknown Other Verified 05/20/21 11:03 codeine AdvReac blacked Verified 05/20/21 11:03 out midazolam [From Versed] AdvReac Nausea/vomi Verified 05/20/21 11:03 ting nalbuphine [From Nubain] AdvReac Nausea/vomi Verified 05/20/21 11:03 ting Family History Mother Arthritis Heart disease Hypertension CVA (cerebral vascular accident) Skin cancer Father Arthritis Heart disease Surgical History (Updated 05/16/21 @ 11:[address] Arnie Mac MD) History of cholecystectomy History of hysterectomy Hx of laparoscopy Social History Smoking Status: Former smoker alcohol intake: never substance use type: does not use what type of physical activity do you participate in: none Physical Exam Const alert and oriented x3 Constitutional Narrative: Mild distress as patient states that something still feels off General Appearance: cooperative Neck Neck Narrative: Patient's incision remains healed beneath Dermabond. Soft ti ssues are soft and there is mild discoloration but no evidence of fluid collection/hematoma Lab / Micro Data Result Diagrams: 05/20/21 12:10 05/20/21 12:10 Labs: Laboratory Results - last 24 hr 05/20/21 12:10: WBC 7.8, RBC 3.70 L, Hgb 10.6 L, Hct 32.1 L, MCV 86.8, MCH 28.6, MCHC 33.0, RDW Std Deviation 44.0 H, RDW Coeff of Tanner 13.9, Plt Count 365, MPV 10.4, Immature Gran % (Auto) 0.400, Neut % (Auto) 67.7, Lymph % (Auto) 20.1, [place] % (Auto) 7.4, Eos % (Auto) 3.8, Baso % (Auto) 0.6, Absolute Neuts (auto) 5.3, Absolute Lymphs (auto) 1.57, Nucleated RBC % 0 05/20/21 12:10: Sodium 143, Potassium 3.8, Chloride 108 H, Carbon Dioxide 29.0, Anion Gap 6, BUN 10, Creatinine 0.56, Estim Creat Clear Calc 71.67, Est GFR (MDRD) Af Amer 144, Est GFR (MDRD) Non-Af 119, BUN/Creatinine Ratio 18.0, Glucose 89, Calcium 10.3 H, Total Bilirubin 0.20, AST 26, ALT 107 H, Alkaline Phosphatase 94, Troponin I High Sens 20, Total Protein 6.4, Albumin 3.1 L, Globulin 3.3, Albumin/Globulin Ratio 0.9 Radiology Impression Chest X-Ray 05/20/21 12:48 IMPRESSION: Normal x-ray examination of the chest. Electronically Signed: Orestes Dean MD at 13:24 EDT Tel , Service support , Charges/Coding Visit Charges Inpatient E&M: 31843 Init Hosp L2
--- NOTE | 2021-05-20 14:26 | NURSING ---
PCU OBS WHITE NEAR SYNCOPE
--- NOTE | 2021-05-20 14:36 | HP.PCM.HOS_ITS ---
Documented by User: Kelly Ricks NP, GEOLOGICAL ENGINEERING TEACHER-C 05/20/21 14:50 HPI - General HPI Narrative DENILSON TERRY, is a 56 F who presents to the emergency room due to near syncope and tingling sensation of her hands. Patient states she woke up this morning with tingling of both hands. Denies numbness, weakness. States she has had this in the past with calcium issues and took Tums. She states she sat down for breakfast and upon standing, became lightheaded and felt as if she was going to pass out. Her family member assisted her to sit down on the couch and she states she put her head between her knees and symptoms resolved. She denies loss of consciousness. Reports continued bilateral hand tingling. Denies other n eurologic symptoms or focal deficits. Denies nausea, diaphoresis, shortness of breath, chest pain. Patient underwent recent parathyroidectomy 05/16/2021 due to primary hyperparathyroidism. She states she has been doing well following surgery. Denies significant discomfort or other associated symptoms. Her other past medical history includes anxiety/depression, hyperlipidemia, GERD. [facility] Medical History (Updated 05/20/21 @ 14:46 by Kelly Ricks NP, GEOLOGICAL ENGINEERING TEACHER-C) Anxiety Former smoker Gastric reflux High cholesterol High cholesterol History of anxiety History of ulceration Hypercalcemia Hyperparathyroidism Shortness of breath on exertion Syncope Thyroid disease Vitamin D deficiency Wears dentures Wears glasses Home Medications rosuvastatin [Crestor] 5 mg PO DAILY 12/12/20 [History Last Taken 05/10/21] sertraline [Zoloft] 50 mg PO DAILY 12/12/20 [History Last Taken 05/10/21] cholecalciferol (vitamin D3) 75 mcg (3,000 unit) tablet 75 mcg PO DAILY 04/09/21 [History Last Taken 05/10/21] famotidine [Pepcid] 20 mg PO DAILY 05/09/21 [History Last Taken 05/10/21] potassium chloride 20 meq PO DAILY #10 tab 05/12/21 [Rx Last Taken Unknown] calcium carbonate-vitamin D3 [Calcium 500 With D] 1 tab PO TID #90 tab 05/16/21 [Rx Last Taken Unknown] Allergy/AdvReac Type Severity Reaction Status Date / Time scopolamine AdvReac Unknown Other Verified 05/20/21 11:03 codeine AdvReac blacked Verified 05/20/21 11:03 out midazolam [From Versed] AdvReac Nausea/vomi Verified 05/20/21 11:03 ting nalbuphine [From Nubain] AdvReac Nausea/vomi Verified 05/20/21 11:03 ting Family History (Reviewed 05/20/21 @ 14:43 by Kelly Ricks GEOLOGICAL ENGINEERING TEACHER, GEOLOGICAL ENGINEERING TEACHER-C) Mother Arthritis Heart disease Hypertension CVA (cerebral vascular accident) Skin cancer Father Arthritis Heart disease Surgical History (Updated 05/20/21 @ 14:44 by Kelly Ricks GEOLOGICAL ENGINEERING TEACHER, GEOLOGICAL ENGINEERING TEACHER-C) History of cholecystectomy History of hysterectomy Hx of laparoscopy S/P parathyroidectomy Social History Smoking Status: Former smoker alcohol intake: never substance use type: does not use what type of physical activity do you participate in: none ROS Constitutional Constitutional: Denies change in weight, chills, fatigue, fever(s) or weakness Cardiovascular Cardiovascular: Reports lightheadedness and other Details: Near syncope ; Denies chest pain, edema or palpitations Respiratory/Chest Respiratory/Chest: Denies cough, dyspnea, productive cough, shortness of breath at rest, shortness of breath with exertion or wheezing Gastrointestinal Gastrointestinal: Denies abdominal pain, constipation, diarrhea, nausea or vomiting Genitourinary Genitourinary: Denies burning urination, difficulty urinating, dysuria, hematuria, urinary frequency, urinary incontinence or urinary urgency Musculoskeletal Musculoskeletal: Denies back pain, joint pain or muscle weakness Integumentary Integumentary: Denies erythema, lesions, rash or wounds Neurologic Neurologic: Reports other Details: Tingling bilateral hands ; Denies abnormal speech, confusion, dizziness, focal weakness, numbness, seizure-like activity or syncope Psychiatric Psychiatric: Denies anxiety or depression Hematologic/Lymphatic Hematologic/Lymphatic: Denies anemia, easy bleeding or easy bruising Allergic/Immunologic Allergic/Immunologic: Denies hives or asthma Vital Signs Vital Signs Vital Signs: 05/20/21 11:04 05/20/21 11:28 05/20/21 13:06 Temperature 97.8 F Temperature Source Temporal Pulse Rate 75 67 57 L Respiratory Rate 14 18 15 Respiratory Effort Normal Respiratory Pattern Normal Blood Pressure 148/87 H Blood Pressure Mean 107 Pulse Ox 98 98 98 Oxygen Delivery Method Room Air Room Air Room Air Weight Weight: 91 lb 6.4 oz Body Mass Index (BMI) 19.1 Physical Exam Const alert, oriented x3 and no apparent distress Orientation / Consciousness: awake, oriented to person, oriented to place and oriented to time Nutritional Appearance: cachectic HEENT normocephalic and moist oral mucous membranes Eyes PERRL, EOMs intact bilaterally and conjunctivae normal Neck no lymphadenopathy Resp normal respiratory effort and clear to auscultation bilaterally Cardio regular rate, regular rhythm and no murmurs Peripheral Pulses: pulses 2+ throughout GI normal to inspection, nondistended, normoactive bowel sounds, non-tender and non-distended Extremity normal to inspection Skin no rashes or lesions noted Skin Narrative: Anterior neck postoperative incision intact, healing appropriately. Lesions: no lesions Rashes: no rashes Trauma: no lacerations or abrasions Neuro CN's II-XII intact bilaterally, no focal motor deficits, no sensory deficits noted and deep tendon reflexes 2+ bilaterally Psych mental status grossly normal and affect normal Results Lab / Micro Data Result Diagrams: 05/20/21 12:10 05/20/21 12:10 Labs: Laboratory Results - last 24 hr 05/20/21 12:10: WBC 7.8, RBC 3.70 L, Hgb 10.6 L, Hct 32.1 L, MCV 86.8, MCH 28.6, MCHC 33.0, RDW Std Deviation 44.0 H, RDW Coeff of Tanner 13.9, Plt Count 365, MPV 10.4, Immature Gran % (Auto) 0.400, Neut % (Auto) 67.7, Lymph % (Auto) 20.1, [place] % (Auto) 7.4, Eos % (Auto) 3.8, Baso % (Auto) 0.6, Absolute Neuts (auto) 5.3, Absolute Lymphs (auto) 1.57, Nucleated RBC % 0 05/20/21 12:10: Sodium 143, Potassium 3.8, Chloride 108 H, Carbon Dioxide 29.0, Anion Gap 6, BUN 10, Creatinine 0.56, Estim Creat Clear Calc 71.67, Est GFR (MD RD) Af Amer 144, Est GFR (MDRD) Non-Af 119, BUN/Creatinine Ratio 18.0, Glucose 89, Calcium 10.3 H, Total Bilirubin 0.20, AST 26, ALT 107 H, Alkaline Phosp hatase 94, Troponin I High Sens 20, Total Protein 6.4, Albumin 3.1 L, Globulin 3.3, Albumin/Globulin Ratio 0.9 Radiology Impression Chest X-Ray 05/20/21 12:48 IMPRESSION: Normal x-ray examination of the chest. Electronically Signed: Orestes Dean MD at 13:24 EDT Tel , Service support , Assessment & Plan Assessment/Plan (1) Syncope: PLAN: 1. Near syncope-suspect vasovagal versus related to postoperative electrolyte changes, as expected. Check orthostatic vitals. Trend enzymes. Check PTH, mag, trend calcium. IV fluids. 2. Status post parathyroidectomy secondary to primary hyperparathyroidism 05/16/2021-surgery consulted for ongoing management. 3. Anxiety/depression-on sertraline. 4. Hyperlipidemia-continue statin. 5. GERD-continue famotidine. 6. Chronic normocytic anemia-appears at baseline. DVT prophylaxis- Lovenox sc This patient was seen by SUJEY MiddletonC under the supervision of Dr. Carmona. Documented by User: Dr. Mariana Carmona MD 05/20/21 15:01 HPI - General General Date of Admission: 05/20/21 [facility] Medical History (Updated 05/20/21 @ 14:46 by Kelly Ricks NP, GEOLOGICAL ENGINEERING TEACHER-C) Anxiety Former smoker Gastric reflux High cholesterol High cholesterol History of anxiety History of ulceration Hypercalcemia Hyperparathyroidism Shortness of breath on exertion Syncope Thyroid disease Vitamin D deficiency Wears dentures Wears glasses Home Medications rosuvastatin [Crestor] 5 mg PO DAILY 12/12/20 [History Last Taken 05/10/21] sertraline [Zoloft] 50 mg PO DAILY 12/12/20 [History Last Taken 05/10/21] cholecalciferol (vitamin D3) 75 mcg (3,000 unit) tablet 75 mcg PO DAILY 04/09/21 [History Last Taken 05/10/21] famotidine [Pepcid] 20 mg PO DAILY 05/09/21 [History Last Taken 05/10/21] potassium chloride 20 meq PO DAILY #10 tab 05/12/21 [Rx Last Taken Unknown] calcium carbonate-vitamin D3 [Calcium 500 With D] 1 tab PO TID #90 tab 05/16/21 [Rx Last Taken Unknown] Allergy/AdvReac Type Severity Reaction Status Date / Time scopolamine AdvReac Unknown Other Verified 05/20/21 11:03 codeine AdvReac blacked Verified 05/20/21 11:03 out midazolam [From Versed] AdvReac Nausea/vomi Verified 05/20/21 11:03 ting nalbuphine [From Nubain] AdvReac Nausea/vomi Verified 05/20/21 11:03 ting Family History (Reviewed 05/20/21 @ 14:43 by Kelly Ricks GEOLOGICAL ENGINEERING TEACHER, GEOLOGICAL ENGINEERING TEACHER-C) Mother Arthritis Heart disease Hypertension CVA (cerebral vascular accident) Skin cancer Father Arthritis Heart disease Surgical History (Updated 05/20/21 @ 14:44 by Kelly Ricks NP, GEOLOGICAL ENGINEERING TEACHER-C) History of cholecystectomy History of hysterectomy Hx of laparoscopy S/P parathyroidectomy Social History Smoking Status: Former smoker alcohol intake: never substance use type: does not use what type of physical activity do you participate in: none Results Lab / Micro Data Result Diagrams: 05/20/21 12:10 05/20/21 12:10
[2021-05-20 14:51] LABS: Mucous, Urine 0 SEEN /hpf (<or=2+); Red Blood Cells-Urine 0 SEEN /hpf (0-5)
[2021-05-20 14:56] LABS: Color, Urine Yellow (Yellow); Glucose, Dipstick Normal (Normal); Ketone-Dipstick Negative (Negative); Leukocyte Esterase-Dipstick 100 /ul (Negative); Nitrite-Dipstick Negative (Negative); Occult Blood-Urine Negative /ul (Negative); Protein-Dipstick Negative (Negative); Urine Bilirubin Dipstick Negative (Negative); Urine Clarity Clear (Clear); Urine Urobilinogen Normal (Normal)
[2021-05-20 15:02] LABS: Bacteria RARE /hpf (None Seen); Squamous Epithelial Cells - UA 0-5 SEEN /hpf (5-10); White Blood Cells 0-5 SEEN /hpf (0-5)
[2021-05-20 15:16] LABS: Magnesium 1.8 mg/dL (1.6-2.6)
[2021-05-20 16:11] LABS: Troponin-I HS 21 pg/mL (3.0-54.0)
--- NOTE | 2021-05-20 16:27 | EDS_ITS ---
HPI History of Present Illness Chief Complaint: Syncope Informant: patient Onset/Context/Timing Onset: Today Context: Gradual Onset Timing: Continuous Location: Generalized Worsened by: Standing Relieved by: Nothing Narrative Narrative: Patient presents with near syncopal episode that occurred today. Patient states she felt weak. Patient states she felt tingling in her arms and legs. Patient states she had a recent parathyroid surgery and was told to watch for numbness and tingling because her calcium may go down. Patient states she took a Tums after this happened. Patient states she then took her normal calcium pills. Patient states her lightheadedness is worse with standing. Pat zohreh admits to some shortness of breath and cough. Patient states she has some pain in her chest with coughing but otherwise no chest pain. Patient admits to some tingling in her hands. [facility] Medical History Anxiety Former smoker Gastric reflux High cholesterol High cholesterol History of anxiety History of ulceration Hypercalcemia Hyperparathyroidism Shortness of breath on exertion Syncope Thyroid disease Vitamin D deficiency Wears dentures Wears glasses Home Medications rosuvastatin [Crestor] 5 mg PO DAILY 12/12/20 [History Last Taken 05/10/21] sertraline [Zoloft] 50 mg PO DAILY 12/12/20 [History Last Taken 05/10/21] cholecalciferol (vitamin D3) 75 mcg (3,000 unit) tablet 75 mcg PO DAILY 04/09/21 [History Last Taken 05/10/21] famotidine [Pepcid] 20 mg PO DAILY 05/09/21 [History Last Taken 05/10/21] potassium chloride 20 meq PO DAILY #10 tab 05/12/21 [Rx Last Taken Unknown] calcium carbonate-vitamin D3 [Calcium 500 With D] 1 tab PO TID #90 tab 05/16/21 [Rx Last Taken Unknown] Allergy/AdvReac Type Severity Reaction Status Date / Time scopolamine AdvReac Unknown Other Verified 05/20/21 11:03 codeine AdvReac blacked Verified 05/20/21 11:03 out midazolam [From Versed] AdvReac Nausea/vomi Verified 05/20/21 11:03 ting nalbuphine [From Nubain] AdvReac Nausea/vomi Verified 05/20/21 11:03 ting Family History Mother Arthritis Heart disease Hypertension CVA (cerebral vascular accident) Skin cancer Father Arthritis Heart disease Surgical History History of cholecystectomy History of hysterectomy Hx of laparoscopy S/P parathyroidectomy Social History Smoking Status: Former smoker alcohol intake: never substance use type: does not use what type of physical activity do you participate in: none ROS ROS ED Constitutional Constitutional ED: Denies chills or fever(s) Eyes Eyes: Denies blurry vision or change in vision ENT ENT ED: Denies rhinorrhea or sore throat Cardiovascular Cardiovascular: Reports chest pain; Denies palpitations Respiratory/Chest Respiratory/Chest: Reports cough and dyspnea Gastrointestinal Gastrointestinal: Denies nausea or vomiting Genitourinary Genitourinary ED: Denies dysuria or hematuria Musculoskeletal Musculoskeletal: Denies back pain or neck pain Integumentary Denies abscess or rash Neurologic Neurologic: Reports paresthesias RUE and LUE; Denies headache(s) or weakness Allergic/Immunologic Allergic/Immunologic ED: Denies mouth swelling or urticaria EXAM Physical Exam Const Vital Signs: 05/20/21 11:04 05/20/21 11:28 05/20/21 13:06 Temperature 97.8 F Temperature Source Temporal Pulse Rate 75 67 57 L Pulse Rate [Lying] Pulse Rate [Sitting] Pulse Rate [Standing] Respiratory Rate 14 18 15 Respiratory Effort Normal Respiratory Pattern Normal Blood Pressure 148/87 H Blood Pressure [Lying] Blood Pressure [Sitting] Blood Pressure [Standing] Blood Pressure Mean 107 Blood Pressure Mean [Lying] Blood Pressure Mean [Sitting] Blood Pressure Mean [Standing] Pulse Ox 98 98 98 Oxygen Delivery Method Room Air Room Air Room Air 05/20/21 14:30 05/20/21 14:40 Temperature 97.8 F Temperature Source Temporal Pulse Rate 57 L Pulse Rate [Lying] 64 Pulse Rate [Sitting] 59 L Pulse Rate [Standing] 64 Respiratory Rate 15 Respiratory Effort Respiratory Pattern Blood Pressure 148/87 H Blood Pressure [Lying] 158/78 H Blood Pressure [Sitting] 164/79 H Blood Pressure [Standing] 165/85 H Blood Pressure Mean 107 Blood Pressure Mean [Lying] 104 Blood Pressure Mean [Sitting] 107 Blood Pressure Mean [Standing] 111 Pulse Ox 98 Oxygen Delivery Method Room Air Positive well nourished and well developed General Appearance ED: well developed HEENT Reports moist mucous membranes Neck supple and no JVD Resp normal respiratory effort and clear to auscultation bilaterally Cardio regular rate and regular rhythm GI normal to inspection, nondistended, normoactive bowel sounds and non-tender Palpation: soft Extremity normal to inspection General Extremety ED: Negative for edema or tenderness General Extremity: Negative for edema Neuro oriented x3, CN's II-XII intact bilaterally and no sensory deficits noted Sensorium / Orientation: alert Motor Exam: strength 5/5 throughout Psych mental status grossly normal Skin no rashes or lesions noted MDM MDM MDM Narrative Medical decision making narrative: EKG was obtained. On my interpretation, it showed a normal sinus rhythm with a rate of 63. VA interval, QRS interval, and QTc intervals were all normal. [place] was normal. There are no acute ST or T wave changes. CBC and comprehensive metabolic profile were obtained and were within normal limits. Magnesium was normal. High-sensitivity troponin was normal. Urinalysis was obtained. There is no evidence of urinary tract infection. Portable 1 view chest x-ray was obtained. On my interpretation, lung matos are clear. There is normal cardiac silhouette. Bony thorax is normal. There is no acute process noted. Radiologist also interpreted the x- ray and agrees. Patient surgeon was in to evaluate the patient. He recommended admitting the patient for near syncopal episode and work-up. He will follow along with the patient in the hospital. Patient is agreeable to this plan. Patient will be admitted to medical floor for observation. Lab Data Attestation: I reviewed the patient's lab results. Labs: Laboratory Results - last 24 hr 05/20/21 05/20/21 05/20/21 12:10 12:10 12:10 WBC 7.8 RBC 3.70 L Hgb 10.6 L Hct 32.1 L MCV 86.8 MCH 28.6 MCHC 33.0 RDW Std Deviation 44.0 H RDW Coeff of Tanner 13.9 Plt Count 365 MPV 10.4 Immature Gran % (Auto) 0.400 Neut % (Auto) 67.7 Lymph % (Auto) 20.1 [place] % (Auto) 7.4 Eos % (Auto) 3.8 Baso % (Auto) 0.6 Absolute Neuts (auto) 5.3 Absolute Lymphs (auto) 1.57 Nucleated RBC % 0 Sodium 143 Potassium 3.8 Chloride 108 H Carbon Dioxide 29.0 Anion Gap 6 BUN 10 Creatinine 0.56 Estim Creat Clear Calc 71.67 Est GFR (MDRD) Af Amer 144 Est GFR (MDRD) Non-Af 119 BUN/Creatinine Ratio 18.0 Glucose 89 Calcium 10.3 H Magnesium 1.8 Total Bilirubin 0.20 AST 26 ALT 107 H Alkaline Phosphatase 94 Troponin I High Sens 20 Total Protein 6.4 Albumin 3.1 L Globulin 3.3 Albumin/Globulin Ratio 0.9 Urine Color Urine Clarity Urine pH Ur Specific [place] Urine Protein Urine Glucose (UA) Urine Ketones Urine Occult Blood Urine Nitrite Urine Bilirubin Urine Urobilinogen Ur Leukocyte Esterase Urine RBC Urine WBC Ur Squamous Epith Cells Urine Bacteria Urine Mucus 05/20/21 14:45 WBC RBC Hgb Hct MCV MCH MCHC RDW Std Deviation RDW Coeff of Tanner Plt Count MPV Immature Gran % (Auto) Neut % (Auto) Lymph % (Auto) [place] % (Auto) Eos % (Auto) Baso % (Auto) Absolute Neuts (auto) Absolute Lymphs (auto) Nucleated RBC % Sodium Potassium Chloride Carbon Dioxide Anion Gap BUN Creatinine Estim Creat Clear Calc Est GFR (MDRD) Af Amer Est GFR (MDRD) Non-Af BUN/Creatinine Ratio Glucose Calcium Magnesium Total Bilirubin AST ALT Alkaline Phosphatase Troponin I High Sens Total Protein Albumin Globulin Albumin/Globulin Ratio Urine Color Yellow Urine Clarity Clear Urine pH 8.0 Ur Specific [place] 1.010 Urine Protein Negative Urine Glucose (UA) Normal Urine Ketones Negative Urine Occult Blood Negative Urine Nitrite Negative Urine Bilirubin Negative Urine Urobilinogen Normal Ur Leukocyte Esterase 100 H Urine RBC 0 SEEN Urine WBC 0-5 SEEN Ur Squamous Epith Cells 0-5 SEEN Urine Bacteria RARE Urine Mucus 0 SEEN Radiography Chest X-Ray - ED: 1 View, Read by ED Physician, Read by Radiologist and Normal Diagnostic Testing: Clinical Impression(s) from Imaging Studies Chest X-Ray 05/20/21 12:48 IMPRESSION: Normal x-ray examination of the chest. Electronically Signed: Orestes Dean MD at 13:24 EDT Tel , Service support , EKG Initial EKG: Attestation: I personally reviewed and interpreted this EKG as follows: Interpretation: Sinus Rhythm (63) and No Acute Injury Pattern Prior EKG tracings: available for review Prior: Unchanged (05/11/2021) Treatment and Re-Evaluation Vital Sign Attestation:: Vital signs reviewed prior to admission. They are stable. Discharge Plan Dx/Rx/DC Orders Clinical Impression: Near syncope, S/P parathyroidectomy Disposition Disposition: Acute Care Hospital [facility] Discharge Date/Time: 05/20/21 14:55
[2021-05-20] MEDS: Calcium Carb/Vitamin D 1 TABLET Tablet PO (16:50)
[2021-05-20] MEDS: 0.9% Normal Saline 1,000 ML 100 ML IV (16:56)
[2021-05-20 18:42] LABS: Troponin-I HS 21 pg/mL (3.0-54.0)
[2021-05-20] MEDS: Docusate Sodium 100 MG Capsule PO (20:38)
[2021-05-21 02:31] VITALS: PULSE 60
[2021-05-21 02:57] VITALS: BP 143/71; PULSE 57; RESP 16; TEMP 36.6; O2SAT 97
[2021-05-21] MEDS: 0.9% Normal Saline 1,000 ML 100 ML IV (02:57)
[2021-05-21 03:02] VITALS: O2SAT 97
[2021-05-21 06:55] LABS: Absolute Lymphocyte Count 1.83 X10^3/uL (0.83-4.51); Absolute Neutrophil Count 4.1 X10^3/uL (2.0-7.7); Basophil# 0.02 X10^3/uL; Basophil% 0.3 % (0-1); Eosinophil# 0.43 X10^3/uL; Eosinophils% 6.2 % (0-5); Hematocrit 27.9 % (37-47); Hemoglobin 9.1 g/dL (12.0-15.0); Lymphocyte # 1.83 X10^3/ul (0.83-4.51); Lymphocyte % 26.2 % (19-41); Mean Corp Hgb Conc 32.6 g/dL (32-36); Mean Corpuscular Hgb 28.3 pg (27.0-32.0); Mean Corpuscular Volume 86.9 fL (81-99); Mean Platelet Vol. 10.8 fl (6.2-12.0); Monocyte# 0.62 X10^3/uL; Monocyte% 8.9 % (0-10); NRBC Flagged by Analyzer 0 % (0-5); Neutrophil # 4.06 X10^3/uL (2.7-7.7); Neutrophil % 58.1 % (47-70); Platelet Count 289 K/mm3 (150-450); RBC Distribution Width CV 13.7 % (11.6-14.6); RBC Distribution Width SD 43.2 fl (35.1-43.9); Red Blood Count 3.21 M/mm3 (4.2-5.4)
[2021-05-21 07:10] LABS: Anion Gap 7 (5-15); BUN 10 mg/dL (7-18); BUN/Creat Ratio 19.1 RATIO (10-20); Calcium,Total 8.7 mg/dL (8.5-10.1); Chloride 114 mmol/L (98-107); Creatinine, Serum 0.52 mg/dL (0.55-1.02); EST Glomerular Filtration Rate 128 mL/min (>60); Est Glom Filt Rate - Afr Amer 154 mL/min (>60); Estimated Creatinine Clearance 76.89 ml/min; Glucose 84 mg/dL (74-106); Potassium 3.5 mmol/L (3.5-5.1); Sodium Level 145 mmol/L (136-145)
[2021-05-21] MEDS: Acetaminophen 325 MG Tablet 650 MG PO (07:25)
[2021-05-21 07:55] VITALS: BP 136/55; PULSE 67; RESP 18; TEMP 36.9; O2SAT 97
[2021-05-21 07:56] VITALS: PULSE 69
--- NOTE | 2021-05-21 07:57 | PCS.PANDOC ---
PANDEMIC DOCUMENTATION INITIATED: Date: 03/26/2021 Time: 190
[2021-05-21] MEDS: Famotidine 20 MG Tablet PO (07:58)
[2021-05-21] MEDS: Sertraline 50 MG Tablet PO (07:59)
[2021-05-21] MEDS: Cholecalciferol (VIT D3) 25 MCG TABLET (1,000 UNITS) 75 MCG PO (07:59)
[2021-05-21] MEDS: Docusate Sodium 100 MG Capsule PO (08:00)
[2021-05-21] MEDS: Atorvastatin Calcium 10 MG Tablet PO (08:00)
[2021-05-21] MEDS: Calcium Carb/Vitamin D 1 TABLET Tablet PO ×2 (08:00→12:12)
[2021-05-21] MEDS: Potassium Chloride Oral Tablet 20 MEQ PO (08:01)
[2021-05-21 09:23] LABS: PTHIN 6.2 pg/mL (18.4-80.1)
--- NOTE | 2021-05-21 10:38 | PCM.PN.SRG ---
Subjective Subjective Patient seen and examined during AM rounds. She has hospital day one for presyncopal work-up. She states that she still does not quite feel herself. She feels some tightness in her chest as she describes it. She has had resolution of her paresthesia type tingling of her fingertips. Objective Data Objective Data Vital Signs: Vital Signs Temp Pulse Resp BP Pulse Ox 98.5 F 69 18 136/55 H 97 05/21/21 07:55 05/21/21 07:56 05/21/21 07:55 05/21/21 07:55 05/21/21 07:55 Oxygen Delivery Method Room Air Weight: 91 lb 0.815 oz Body Mass Index (BMI) 18.7 Intake & Output: Intake and Output for Last 24 Hours 05/19/21 05/20/21 05/21/21 23:59 23:59 23:59 Intake Total 500 / 500 1100 / 1100 Balance 500 / 500 1100 / 1100 Lab / Micro Data Result Diagrams: 05/21/21 06:20 05/21/21 06:20 Labs: Laboratory Results - last 24 hr 05/20/21 12:10: WBC 7.8, RBC 3.70 L, Hgb 10.6 L, Hct 32.1 L, MCV 86.8, MCH 28.6, MCHC 33.0, RDW Std Deviation 44.0 H, RDW Coeff of Tanner 13.9, Plt Count 365, MPV 10.4, Immature Gran % (Auto) 0.400, Neut % (Auto) 67.7, Lymph % (Auto) 20.1, [place] % (Auto) 7.4, Eos % (Auto) 3.8, Baso % (Auto) 0.6, Absolute Neuts (auto) 5.3, Absolute Lymphs (auto) 1.57, Nucleated RBC % 0 05/20/21 12:10: Sodium 143, Potassium 3.8, Chloride 108 H, Carbon Dioxide 29.0, Anion Gap 6, BUN 10, Creatinine 0.56, Estim Creat Clear Calc 71.67, Est GFR (MDRD) Af Amer 144, Est GFR (MDRD) Non-Af 119, BUN/Creatinine Ratio 18.0, Glucose 89, Calcium 10.3 H, Total Bilirubin 0.20, AST 26, ALT 107 H, Alkaline Phosphatase 94, Troponin I High Sens 20, Total Protein 6.4, Albumin 3.1 L, Globulin 3.3, Albumin/Globulin Ratio 0.9 05/20/21 12:10: Magnesium 1.8 05/20/21 12:10: PTH Intact 6.2 L 05/20/21 14:45: Urine Color Yellow, Urine Clarity Clear, Urine pH 8.0, Ur Specific [place] 1.010, Urine Protein Negative, Urine Glucose (UA) Normal, Urine Ketones Negative, Urine Occult Blood Negative, Urine Nitrite Negative, Urine Bilirubin Negative, Urine Urobilinogen Normal, Ur Leukocyte Esterase 100 H, Urine RBC 0 SEEN, Urine WBC 0-5 SEEN, Ur Squamous Epith Cells 0-5 SEEN, Urine Bacteria RARE, Urine Mucus 0 SEEN 05/20/21 15:38: Troponin I High Sens 21 05/20/21 18:11: Troponin I High Sens 21 05/21/21 06:20: Sodium 145, Potassium 3.5, Chloride 114 H, Carbon Dioxide 24.0, Anion Gap 7, BUN 10, Creatinine 0.52 L, Estim Creat Clear Calc 76.89, Est GFR (MDRD) Af Amer 154, Est GFR (MDRD) Non-Af 128, BUN/Creatinine Ratio 19.1, Glucose 84, Calcium 8.7 05/21/21 06:20: WBC 7.0, RBC 3.21 L, Hgb 9.1 L, Hct 27.9 L, MCV 86.9, MCH 28.3, MCHC 32.6, RDW Std Deviation 43.2, RDW Coeff of Tanner 13.7, Plt Count 289, MPV 10.8, Immature Gran % (Auto) 0.300, Neut % (Auto) 58.1, Lymph % (Auto) 26.2, [place] % (Auto) 8.9, Eos % (Auto) 6.2 H, Baso % (Auto) 0.3, Absolute Neuts (auto) 4.1, Absolute Lymphs (auto) 1.83, Nucleated RBC % 0 Radiography Diagnostic Testing: Radiology Impression Chest X-Ray 05/20/21 12:48 IMPRESSION: Normal x-ray examination of the chest. Electronically Signed: Orestes Dean MD at 13:24 EDT Tel , Service support , Physical Exam Const oriented x3 and no apparent distress Neck Neck Narrative: Patient's neck is appropriate for her postoperative status. Her incision remains sealed with Dermabond in the tissues about the incision remained soft Resp normal respiratory effort Assessment & Plan Assessment/Plan (1) S/P parathyroidectomy: PLAN: Patient had postop day five from minimally invasive parathyroidectomy with presentation subsequently for presyncopal episode yesterday. She remains clinically stable. Because of her presyncope is still currently incompletely understood but she does admit to poor p.o. intake prior to her presentation secondary to postoperative constipation (which she admits extended even before her operation). He is describing some chest discomfort but EKG was negative yesterday. From an endocrine standpoint, her calcium is now in the lower range of normal and her PTH is somewhat suppressed. I suspect her PTH suppression is due to her exogenous use of calcium carbonate. I think we are at a good level with the supplementation as is best to target a low/normal calcium level to not over suppressed the parathyroid mass that remains. Appreciate medicine's input on the presyncopal work-up. Charges/Coding Visit Charges Inpatient E&M: 15153 Subs Hosp L2
--- NOTE | 2021-05-21 11:31 | PCM.DC ---
Discharge Instructions Diet Discharge Diet: No restrictions Activity Discharge Activity: Return to Normal Activity Dressing / Incision Call your doctor if you observe: Shortness of breath, Dizziness, Fainting spells and Chest pain Follow Up Care Test Results: Test results from this visit will be discussed in further detail at your follow-up appointment, if applicable. Discharge Plan Admission Admit Date/Time: 05/20/21 15:00 Primary Reason for Your Visit: Near syncope Attending Provider: Brad Card Primary Care Provider: Robinson Patiño Consulting Providers: Arnie Mac Instructions Additional Instructions / Restrictions: Repeat labs as previously scheduled by Dr. Mac 05/25/21. Discharge Orders/Prescriptions Prescriptions: Continued cholecalciferol (vitamin D3) 75 mcg (3,000 unit) tablet 75 mcg PO DAILY RF: 0 sertraline [Zoloft] 25 mg tablet 50 mg PO DAILY RF: 0 rosuvastatin [Crestor] 5 mg tablet 5 mg PO DAILY RF: 0 famotidine [Pepcid] 20 mg Tablet 20 mg PO DAILY RF: 0 calcium carbonate-vitamin D3 [Calcium 500 With D] 500 mg(1,250mg) -400 unit tablet 1 tab PO TID Qty: 90 RF: 2 potassium chloride 20 mEq tablet extended release 20 meq PO DAILY Qty: 30 RF: 0 Referrals / Follow Up: Arnie Mac MD [STAFF PHYSICIAN] - See Referral Note (as scheduled) Robinson Patiño MD [Primary Care Provider] - In 1 Week Jimmy Girard MD [STAFF PHYSICIAN] - Within 2 Weeks Disposition Disposition (needs filled in before D/C Order can be placed): Home, Self Care
--- NOTE | 2021-05-21 11:39 | DS.PCM_ITS ---
Documented by User: Kelly Ricks NP, L[facility] MARK[employer] INST[employer]ER-C 05/21/21 11:51 Providers Date of Admission: 05/20/21 Date of Discharge: 05/21/21 Primary Care Physician: Dr. Robinson Patiño MD Consultations 05/20/21 15:05 Consult: General Surgery Routine Consulting Provider: Arnie Mac Reason for Consult: Status post parathyroidectomy EMERGENT Consult: No MD Notified: Yes Date Notified: 05/20/21 Time Notified: 14:59 Method of Notification: Verbal Comments:: notified by ER Reason For Visit: NEAR SYNCOPE Diagnosis Discharge Diagnosis (1) S/P parathyroidectomy: Status: Acute Code(s): E89.2 - Postprocedural hypoparathyroidism Medications at Discharge Home Medications rosuvastatin [Crestor] 5 mg PO DAILY 12/12/20 sertraline [Zoloft] 50 mg PO DAILY 12/12/20 cholecalciferol (vitamin D3) 75 mcg (3,000 unit) tablet 75 mcg PO DAILY 04/09/21 famotidine [Pepcid] 20 mg PO DAILY 05/09/21 calcium carbonate-vitamin D3 [Calcium 500 With D] 1 tab PO TID #90 tab 05/21/21 potassium chloride 20 meq PO DAILY #30 tab 05/21/21 Hospital Course Operations None Procedures None Summary of Care Provided Minutes Spent on Discharge: 35 Hospital Course: Patient is a 56-year-old female admitted 05/20/2021 due to near syncope and tingling sensation of both of her hands. 1. Near syncope-suspect vasovagal versus related to postoperative electrolyte changes, as expected. Orthostatic vitals negative. Cardiac enzymes negative. EKG unremarkable. UA and chest x-ray unremarkable. Patient reports recent poor oral intake as she states she had been constipated. General surgery consulted during admission due to recent parathyroidectomy. PTH low, 6.2, calcium lower range of normal, 8.7. Surgery recommending continuing current calcium/vitamin D supplementation. Follow-up with PCP in 1 week. Follow-up with general surgery as scheduled. Recommend follow-up with endocrinology, Dr. Girard as well as she has previously established. 2. Status post parathyroidectomy secondary to primary hyperparathyroidism 05/16/2021-surgery consulted during admission for ongoing management. Outpatient follow up as noted above. 3. Anxiety/depression-on sertraline. 4. Hyperlipidemia-continue statin. 5. GERD-continue famotidine. 6. Chronic normocytic anemia-appears at baseline. Physical Exam Const alert, oriented x3 and no apparent distress Orientation / Consciousness: awake, oriented to person, oriented to place and oriented to time Nutritional Appearance: cachectic HEENT normocephalic and moist oral mucous membranes Eyes PERRL, EOMs intact bilaterally and conjunctivae normal Neck no lymphadenopathy Resp normal respiratory effort and clear to auscultation bilaterally Cardio regular rate, regular rhythm and no murmurs Peripheral Pulses: pulses 2+ throughout GI normal to inspection, nondistended, normoactive bowel sounds, non-tender and non-distended Extremity normal to inspection Skin no rashes or lesions noted Skin Narrative: Anterior neck postoperative incision intact, healing appropriately. Lesions: no lesions Rashes: no rashes Trauma: no lacerations or abrasions Neuro CN's II-XII intact bilaterally, no focal motor deficits, no sensory deficits noted and deep tendon reflexes 2+ bilaterally Psych mental status grossly normal and affect normal Patient seen and examined prior to discharge. Physical assessment as noted above. Patient is stable for discharge with follow up recommendations as noted above. This patient was seen by PAM Middleton under the supervision of Dr. Card. Weight / BMI Weight Weight: 91 lb 0.815 oz Body Mass Index (BMI) 18.7 ABG / Lab / Microbiology Data Result Diagrams: 05/21/21 06:20 05/21/21 06:20 Laboratory: Laboratory Results - last 24 hr 05/20/21 12:10: WBC 7.8, RBC 3.70 L, Hgb 10.6 L, Hct 32.1 L, MCV 86.8, MCH 28.6, MCHC 33.0, RDW Std Deviation 44.0 H, RDW Coeff of Tanner 13.9, Plt Count 365, MPV 10.4, Immature Gran % (Auto) 0.400, Neut % (Auto) 67.7, Lymph % (Auto) 20.1, Bent % (Auto) 7.4, Eos % (Auto) 3.8, Baso % (Auto) 0.6, Absolute Neuts (auto) 5.3, Absolute Lymphs (auto) 1.57, Nucleated RBC % 0 05/20/21 12:10: Sodium 143, Potassium 3.8, Chloride 108 H, Carbon Dioxide 29.0, Anion Gap 6, BUN 10, Creatinine 0.56, Estim Creat Clear Calc 71.67, Est GFR (MDRD) Af Amer 144, Est GFR (MDRD) Non-Af 119, BUN/Creatinine Ratio 18.0, Glucose 89, Calcium 10.3 H, Total Bilirubin 0.20, AST 26, ALT 107 H, Alkaline Phosphatase 94, Troponin I High Sens 20, Total Protein 6.4, Albumin 3.1 L, Globulin 3.3, Albumin/Globulin Ratio 0.9 05/20/21 12:10: Magnesium 1.8 05/20/21 12:10: PTH Intact 6.2 L 05/20/21 14:45: Urine Color Yellow, Urine Clarity Clear, Urine pH 8.0, Ur Specific [place] 1.010, Urine Protein Negative, Urine Glucose (UA) Normal, Urine Ketones Negative, Urine Occult Blood Negative, Urine Nitrite Negative, Urine Bilirubin Negative, Urine Urobilinogen Normal, Ur Leukocyte Esterase 100 H, Urine RBC 0 SEEN, Urine WBC 0-5 SEEN, Ur Squamous Epith Cells 0-5 SEEN, Urine Bacteria RARE, Urine Mucus 0 SEEN 05/20/21 15:38: Troponin I High Sens 21 05/20/21 18:11: Troponin I High Sens 21 05/21/21 06:20: Sodium 145, Potassium 3.5, Chloride 114 H, Carbon Dioxide 24.0, Anion Gap 7, BUN 10, Creatinine 0.52 L, Estim Creat Clear Calc 76.89, Est GFR (MDRD) Af Amer 154, Est GFR (MDRD) Non-Af 128, BUN/Creatinine Ratio 19.1, Glucose 84, Calcium 8.7 05/21/21 06:20: WBC 7.0, RBC 3.21 L, Hgb 9.1 L, Hct 27.9 L, MCV 86.9, MCH 28.3, MCHC 32.6, RDW Std Deviation 43.2, RDW Coeff of Tanner 13.7, Plt Count 289, MPV 10.8, Immature Gran % (Auto) 0.300, Neut % (Auto) 58.1, Lymph % (Auto) 26.2, Bent % (Auto) 8.9, Eos % (Auto) 6.2 H, Baso % (Auto) 0.3, Absolute Neuts (auto) 4.1, Absolute Lymphs (auto) 1.83, Nucleated RBC % 0 Radiography Diagnostic Testing: Radiology Impression Chest X-Ray 05/20/21 12:48 IMPRESSION: Normal x-ray examination of the chest. Electronically Signed: Orestes Dean MD at 13:24 EDT Tel , Service support , D/C Instructions Discharge Diet: No restrictions Call your doctor if you observe: Shortness of breath, Dizziness, Fainting spells and Chest pain Meaningful Use Info Meaningful Use Diagnoses (Choose all that apply): None applicable Discharge Plan Admission Admit Date/Time: 05/20/21 15:00 Primary Reason for Your Visit: Near syncope Attending Provider: Brad Card Primary Care Provider: Robinson Patiño Consulting Providers: Arnie Mac Instructions Additional Instructions / Restrictions: Repeat labs as previously scheduled by Dr. Mac 05/25/21. Discharge Orders/Prescriptions Prescriptions: Continued cholecalciferol (vitamin D3) 75 mcg (3,000 unit) tablet 75 mcg PO DAILY RF: 0 sertraline [Zoloft] 25 mg tablet 50 mg PO DAILY RF: 0 rosuvastatin [Crestor] 5 mg tablet 5 mg PO DAILY RF: 0 famotidine [Pepcid] 20 mg Tablet 20 mg PO DAILY RF: 0 calcium carbonate-vitamin D3 [Calcium 500 With D] 500 mg(1,250mg) -400 unit tablet 1 tab PO TID Qty: 90 RF: 2 potassium chloride 20 mEq tablet extended release 20 meq PO DAILY Qty: 30 RF: 0 Referrals / Follow Up: Arnie Mac MD [STAFF PHYSICIAN] - See Referral Note (as scheduled) Robinson Patiño MD [Primary Care Provider] - In 1 Week Jimmy Girard MD [STAFF PHYSICIAN] - Within 2 Weeks Disposition Disposition (needs filled in before D/C Order can be placed): Home, Self Care Documented by User: Dr. Brad Card MD 05/21/21 16:30 Providers Date of Admission: 05/20/21 Reason For Visit: NEAR SYNCOPE Medications at Discharge Home Medications rosuvastatin [Crestor] 5 mg PO DAILY 12/12/20 sertraline [Zoloft] 50 mg PO DAILY 12/12/20 cholecalciferol (vitamin D3) 75 mcg (3,000 unit) tablet 75 mcg PO DAILY 04/09/21 famotidine [Pepcid] 20 mg PO DAILY 05/09/21 calcium carbonate-vitamin D3 [Calcium 500 With D] 1 tab PO TID #90 tab 05/21/21 potassium chloride 20 meq PO DAILY #30 tab 05/21/21 ABG / Lab / Microbiology Data Result Diagrams: 05/21/21 06:20 05/21/21 06:20 Discharge Plan Admission Admit Date/Time: 05/20/21 15:00 Primary Reason for Your Visit: Near syncope Attending Provider: Brad Card Primary Care Provider: Robinson Patiño Consulting Providers: Arnie Mac Instructions Additional Instructions / Restrictions: Repeat labs as previously scheduled by Dr. Mac 05/25/21. Discharge Orders/Prescriptions Prescriptions: Continued cholecalciferol (vitamin D3) 75 mcg (3,000 unit) tablet 75 mcg PO DAILY RF: 0 sertraline [Zoloft] 25 mg tablet 50 mg PO DAILY RF: 0 rosuvastatin [Crestor] 5 mg tablet 5 mg PO DAILY RF: 0 famotidine [Pepcid] 20 mg Tablet 20 mg PO DAILY RF: 0 calcium carbonate-vitamin D3 [Calcium 500 With D] 500 mg(1,250mg) -400 unit tablet 1 tab PO TID Qty: 90 RF: 2 potassium chloride 20 mEq tablet extended release 20 meq PO DAILY Qty: 30 RF: 0 Referrals / Follow Up: Arnie Mac MD [STAFF PHYSICIAN] - See Referral Note (as scheduled) Robinson Patiño MD [Primary Care Provider] - In 1 Week Jmimy Girard MD [STAFF PHYSICIAN] - Within 2 Weeks Disposition Disposition (needs filled in before D/C Order can be placed): Home, Self Care Charges/Coding Addendum Addendum: Dr. Card: I personally reviewed the chart and examined the patient, and agree with the above findings. 56-year-old female who had her parathyroidectomy performed last week presented with tingling as well as syncope/presyncope. She does have a history over the last several weeks of nausea and vomiting and poor oral intake. She states that she was not eating or drinking well prior to this admission secondary to having some more episodes of nausea and vomiting. She feels better today on the day of discharge after getting IV fluid resuscitation. I did discuss with her extensively that as her calcium normalizes she should hopefully start to feel better. If she does continue to have nausea that she can follow- up with general surgeon who performed her parathyroidectomy for possible EGD and evaluation of the nausea. I discussed with her the plan for discharge and she expressed understanding of the risk benefits of going home and would like to go home today. Visit Charges OBSV E&M: 05856 Observation care discharge
[2021-05-21 12:10] LABS: Phosphorus 3.4 mg/dL (2.5-4.9)
--- NOTE | 2021-05-21 12:58 | CHAPLAIN ---
Type of Pastoral Visit _x__ Initial Visit ___ Follow-up Visit ___ On-call Visit ___ General Patient Visit ___ Spiritual Assessment ___ Family Conference ___ Bereavement ___ Rapid Response ___ Code Blue ___ Other (describe below) Pastoral Care Referral From _x__ Patient ___ Family ___ Nurse ___ Physician ___ Engine Turner ___ Crystallography Teacher ___ Other (describe below) Sacrament/Intervention _x__ Active listening ___ Anointing ___ Worship ___ Bereavement ___ Communion ___ Judy exploration ___ ___ Life review _x__ Prayer ___ Reconciliation ___ Sacrament of Sick ___ Supportive presence ___ Wedding ___ Other (describe below) Pastoral Comments
--- NOTE | 2021-05-21 13:23 | CASEMGMT ---
Pt states no concerns with going home at discharge and states has been independent in room. Daughter at bedside. Pt voices no further questions/concerns/needs. Lonnie LÓPEZ CM
--- NOTE | 2021-05-21 13:59 | PHA.DC.MR ---
Pharmacy Service has performed discharge medication reconciliation for this patient. The patient's discharge medication list was reviewed for discrepancies and discrepancies were resolved. Home Medications rosuvastatin [Crestor] 5 mg PO DAILY 12/12/20 sertraline [Zoloft] 50 mg PO DAILY 12/12/20 cholecalciferol (vitamin D3) 75 mcg (3,000 unit) tablet 75 mcg PO DAILY 04/09/21 famotidine [Pepcid] 20 mg PO DAILY 05/09/21 calcium carbonate-vitamin D3 [Calcium 500 With D] 1 tab PO TID #90 tab 05/21/21 potassium chloride 20 meq PO DAILY #30 tab 05/21/21
[2021-05-21 14:10] VITALS: BP 148/74; PULSE 67; RESP 18; TEMP 36.6; O2SAT 98
== END 2021-05-21 11:34 | disposition home or self-care (01) ==
LOC: ED 12:18 → PCU 15:25
PROVIDERS: Nurse Practitioner Family; Admitting Provider Family Medicine; Emergency Provider Emergency Medicine; PCP Family Medicine; Visit Provider Family Medicine
DX: R55 Syncope and collapse (principal); E89.2 Postprocedural hypoparathyroidism; E83.52 Hypercalcemia; F41.9 Anxiety disorder, unspecified; K21.9 Gastro-esophageal reflux disease without esophagitis; R20.2 Paresthesia of skin; E78.5 Hyperlipidemia, unspecified; D64.9 Anemia, unspecified; I10 Essential (primary) hypertension; K59.09 Other constipation; F32.A Depression, unspecified; Z87.891 Personal history of nicotine dependence; Z79.899 Other long term (current) drug therapy
CPT/HCPCS: 36415; 71045; 80048; 80053; 81001; 82330; 83735; 83970; 84100; 84484; 85025; 93005; 96360; 96361; 97802; 99218; 99285; 99406; J7030; G0378

== ENCOUNTER → 2021-05-24 17:13 | Outpatient (CLI) | payer MEDICAID, SELFPAY ==
[2021-05-25 07:33] LABS: PTHIN 20.7 pg/mL (18.4-80.1)
== END ==
PROVIDERS: PCP Family Medicine; Visit Provider Surgery
DX: E89.2 Postprocedural hypoparathyroidism (principal)
CPT/HCPCS: 36415; 82310; 83970

== ENCOUNTER → 2021-06-07 15:15 | Outpatient (CLI) | payer MEDICAID, SELFPAY ==
[2021-06-07 17:47] LABS: Calcium,Total 9.6 mg/dL (8.5-10.1); Potassium 4.2 mmol/L (3.5-5.1)
[2021-06-08 08:19] LABS: PTHIN 46.5 pg/mL (18.4-80.1)
== END ==
PROVIDERS: PCP Family Medicine; Referring Provider Surgery; Visit Provider Surgery
DX: E83.52 Hypercalcemia (principal)
CPT/HCPCS: 36415; 82310; 83970; 84132

== ENCOUNTER → 2021-06-27 13:38 | Outpatient (CLI) | payer MEDICAID, SELFPAY ==
--- NOTE | 2021-06-27 13:47 | CT_ITS ---
EXAM: CT MAXILLOFACIAL WITHOUT INTRAVENOUS CONTRAST CLINICAL INDICATION: CHRONIC SINUITIS TECHNIQUE: Helically acquired images were obtained of the face without intravenous contrast. This CT exam was performed using one or more of the following dose reduction techniques: automated exposure control, adjustment of the mA and/or kV according to patient size, and/or use of iterative reconstruction technique. This report was created using [employer] report generation technology. COMPARISON: None. FINDINGS: BONES/JOINTS: Unremarkable. No displaced fracture. No discrete lytic or blastic abnormalities. SOFT TISSUES: Unremarkable. No focal subcutaneous swelling. No discrete fluid collections. ORBITS: Unremarkable. Both globes are unremarkable. Extraocular muscles are normal. Retrobulbar fat appears unremarkable. SINUSES: There is maxillary and ethmoid sinus disease. MASTOID AIR CELLS: Unremarkable as visualized. Clear. DENTAL: No acute findings. No periodontal osseous erosion. CT/Sinus/Facial Bone IMPRESSION: There is maxillary and ethmoid sinus disease. Electronically Signed: Ascencion Rice MD at 17:23 EST , Service support ,
== END ==
PROVIDERS: PCP Family Medicine; Referring Provider Otolaryngology; Visit Provider Otolaryngology
DX: J32.9 Chronic sinusitis, unspecified (principal); R93.0 Abnormal findings on diagnostic imaging of skull and head, not elsewhere classified
CPT/HCPCS: 70486

== ENCOUNTER 2021-07-19 06:55 | Day surgery (SDC) | payer MEDICAID, SELFPAY ==
[2021-07-19] VITALS (8 sets, daily range): BP systolic 115–156; BP diastolic 54–87; PULSE 55–74; RESP 14–18; TEMP 35.8–36.4; O2SAT 97–100; BMI 19.3
--- NOTE | 2021-07-19 07:48 | PCM.HP.BLA ---
History and Physical Date of Admission: 07/19/21 Date of Service: 06/08/21 MR#:[id number]: EDNILSON TERRY [facility] #:[id number]:1965 Provider:Flex Noriega/Sex: 56/F [facility] Int[facility] Visit Reasons: F/U LABS Chief Complaint: syncope Allergies scopolamine Adverse Reaction (Unknown, Verified 06/08/21 13:52) Other codeine Adverse Reaction (Verified 06/08/21 13:52) blacked out midazolam [From Versed] Adverse Reaction (Verified 06/08/21 13:52) Nausea/vomiting nalbuphine [From Nubain] Adverse Reaction (Verified 06/08/21 13:52) Nausea/vomiting Medications rosuvastatin [Crestor] 5 mg PO DAILY 12/12/20 [History Confirmed 06/08/21] sertraline [Zoloft] 50 mg PO DAILY 12/12/20 [History Confirmed 06/08/21] cholecalciferol (vitamin D3) 75 mcg (3,000 unit) tablet 75 mcg PO DAILY 04/09/21 [History Confirmed 06/08/21] famotidine [Pepcid] 20 mg PO DAILY 05/09/21 [History Confirmed 06/08/21] calcium carbonate-vitamin D3 [Calcium 500 With D] 1 tab PO TID #90 tab 05/21/21 [Rx Confirmed 06/08/21] potassium chloride 20 meq PO DAILY #30 tab 05/21/21 [Rx Confirmed 06/08/21] omeprazole 20 mg capsule,delayed release 20 mg PO DAILY #30 cap 06/08/21 [Rx Confirmed 06/08/21] PFSH Medical History Anxiety Former smoker Gastric reflux High cholesterol High cholesterol History of anxiety History of ulceration Hypercalcemia Hyperparathyroidism Shortness of breath on exertion Syncope Thyroid disease Vitamin D deficiency Wears dentures Wears glasses Surgical History History of cholecystectomy History of hysterectomy Hx of laparoscopy S/P parathyroidectomy Family History Mother Arthritis Heart disease Hypertension CVA (cerebral vascular accident) Skin cancer Father Arthritis Heart disease Social History Smoking Status: Former smoker alcohol intake: never substance use type: does not use what type of physical activity do you participate in: none HPI HPI HPI: Patient presents for second postoperative visit following a minimally invasive parathyroidectomy with intraoperative PTH and nerve monitoring on 05/16/2021. She states that she continues to feel better each day. She is having less fatigue, her mood and concentration are better. To this end she confirms that she is back to solving puzzles. States that her reflux symptoms are also better and she is no longer taking Pepcid. However, she still describes a pain in the chest and is still taking small meals to avoid further issues. She has no incision concerns. She is applying moisturizer to this incision. Her supplementation currently consists of 2 tablets of calcium carbonate and 1 tablet of potassium chloride. Given that we have tentatively plan for upper and lower endoscopy, I have asked the following history. Patient describes regular bowel movements without straining. She describes no observance of blood with these bowel movements. She denies any family history of colon cancer, diverticulitis, or inflammatory bowel disease. Exam Const General: cooperative, healthy appearing, comfortable and no acute distress Neck Other: Patient's Barry incision is well?healing. There is still some induration particularly at the ends of the incision. There is no drainage or erythema. There is no tenderness with palpation. GI Other: Soft, nontender, nondistended Assessment and Plan Assessment and Plan (1) GERD (gastroesophageal reflux disease): Status: Acute Qualifiers: Esophagitis presence: esophagitis presence not specified Qualified Code(s): K21.9 - Gastro-esophageal reflux disease without esophagitis Comment: Patient was some improvement in her GERD, but still persistent chest pain. This is altering her dietary intake. I would like to perform EGD now that her calcium has been normalized and assess for both possible H. pylori and any inflammatory changes to the mucosa. For the interim, I am starting her on omeprazole 20 mg daily. Plan: ?EGD under local MAC ?omeprazole 20 mg daily (2) Hyperparathyroidism: Status: Acute Comment: Status post minimally invasive parathyroidectomy with intraoperative findings of a left-sided parathyroid adenoma weighing 2 g. Postoperatively patient's recovery has been very favorable. She has had improvements in her neuropsychiatric symptoms and GI symptoms. Her labs (PTH, calcium, and potassium) today are all within the range of normal. I think at this point we can take her down to only 1 tablet of calcium supplementation daily. Plan: ?Continue local wound care to neck incision ?Decrease calcium supplementation to 1 tab daily (3) Screening for colon cancer: Status: Acute Comment: This is a 56-year-old female with an average risk of colorectal cancer in need of a EGD to follow-up severe GERD symptoms who has not underwent screening colonoscopy to date. She is willing to submit for same?day upper and lower endoscopy. We reviewed the procedure including the prep for her the day before. Plan: Plan will be to complete colonoscopy on 07/19/2021 under local MAC. Pre-procedure prep discussed and paper instructions provided. Patient is also made aware that she will need to have a rolloff truck driver with her the day of the procedure. Plan Details Other Medications: New: omeprazole 20 mg PO DAILY 30 caps 2RF I have examined the patient the following changes are noted: Patient states that she has ongoing issues with reflux. Her dietary tolerance has been decreased to black licorice and pumpkin seeds. She states with other food she immediately feels nausea. She has some mild tenderness across all 4 quadrants with palpation of her abdomen but otherwise exam is unremarkable. Plan to proceed with diagnostic EGD and screening colonoscopy under local MAC.
--- NOTE | 2021-07-19 08:00 | EGD_PTH ---
PATIENT: DENILSON TERRY LOC: EN U#:[id number] AGE/SX: 56/F ROOM: RE07/19/[address]: Dr. Arnie Mac MD : 1965 BED: DIS: 07/19/2021 SPEC #: [id number] RECD: 07/19/21 11:56 STATUS: CHRISTA BROOK #: [id number] SEBASTIÁN: 07/19/21 08:[address]: Arnie Mac DEPT: SURGICAL PATHOLOGY RECD BY: Gia Gray ENTERED: 07/19/21 13:10 SP TYPE: EGD BIOPSY JOSE LUIS DR: Dr. Robinson Patiño MD Tissues: A - Gastric mucous membrane B - Gastric mucous membrane C - Esophagus, NOS Procedures: Surgery Specimen Level IV HEADER OPERATION: Colonoscopy, EGD ([facility]) PRE-OP DIAGNOSIS: GERD, hyperparathyroidism TISSUE SUBMITTED: A ? Random antral biopsy for H. pylori and path, B ? Gastric body polyp biopsy, C ? Random esophageal biopsy MICROSCOPIC DIAGNOSIS A. Antrum, biopsy: Chronic gastritis. See comment. B. Gastric body polyp, biopsy: Consistent with fundic gland polyp. C. Esophagus, biopsy: Gastroesophageal junctional mucosa with minimal chronic inflammation. Fragments of squamous mucosa with no pathologic change. See comment. AM:danish 07/20/2021 COMMENT A. The results of immunohistochemistry for Helicobacter pylori will be reported separately ([id number]). B. There is no evidence of goblet cell metaplasia. Clinical correlation is suggested. MICROSCOPIC DESCRIPTION Slides are reviewed. GROSS DESCRIPTION A - Received in fixative is one container labeled with the patient's name and designated random antral biopsy. The specimen consists of two irregular fragments of light heard soft tissue that in aggregate measure 0.7 x 0.2 x 0.1 cm. The specimen is totally submitted in one cassette. B - Received in fixative is one container labeled with the patient's name and designated gastric body polyp biopsy. The specimen consists of one irregular fragment of light heard soft tissue that measures 0.5 x 0.2 x 0.1 cm. The specimen is totally submitted in one cassette. C - Received in fixative is one container labeled with the patient's name and designated random esophagus biopsy. The specimen consists of one irregular fragment of light heard soft tissue that measures 0.5 x 0.5 x <0.1 cm. The specimen is totally submitted in one cassette. / AM:danish 07/19/21 TC:3 CPT: 38252 x3
--- NOTE | 2021-07-19 08:00 | IMM_PTH ---
PATIENT: DENILSON TERRY LOC: EN U#:[id number] AGE/SX: 56/F ROOM: RE07/19/[address]: Dr. Arnie Mac MD : 1965 BED: DIS: 07/19/2021 SPEC #: [id number] RECD: 07/19/21 13:04 STATUS: CHRISTA BROOK #: [id number] SEBASTIÁN: 07/19/21 08:[address]: Arnie Mac DEPT: IMMUNOHISTOCHEMISTRY RECD BY: Alcira Yanez ENTERED: 07/19/21 13:04 SP TYPE: IMMUNO OTHR DR: Dr. Robinson Patiño MD Tissues: A - Stomach, NOS Procedures: H Pylori (initial) PHYSICIAN & INSTITUTION [place] [id number] SPECIMEN INFORMATION: Tissue Source: A ? Random antral biopsy Clinical Info: GERD, hyperparathyroidism, screening Specimen Number: [id number] CPT code: 80444 METHODOLOGY: Deparaffinized sections of prefer/formalin-fixed tissue or PAP/DQ stained slides are incubated with monoclonal/polyclonal antibodies/oligonucleotide probes. Localization is made via biotin free immunoperoxidase method. Appropriate controls are performed and reacted as expected. Results on target cell population are indicated in the following table: RESULTS: ANTIBODY / CLONE RESULT Block A H Pylori (polyclonal) negative These tests were developed and their performance characteristics determined by [facility]. They may not have been cleared or approved by the U.S. Food and Drug Administration. The FDA has determined that such clearance or approval is not necessary. INTERPRETATION: A. Gastric antrum, random biopsy: Negative for Helicobacter pylori organisms. AM:danish 07/20/2021
--- NOTE | 2021-07-19 09:09 | OP.EGD_ITS ---
Patient Name: Geetha English Procedure Date: 07/19/2021 7:55 AM Date of : 1965 Age: 56 Procedure: Upper GI endoscopy Indications: Gastro-esophageal reflux disease Providers: Arnie Mac MD Medicines: See the Anesthesia note for documentation of the administered medications Patient Profile: Refer to note in patient chart for documentation of history and physical. Patient has symptoms of chronic global abdominal pain, chronic heartburn and chronic nausea. Complications: No immediate complications. Estimated blood loss: Minimal. Procedure: Pre-Anesthesia Assessment: - The heart rate, respiratory rate, oxygen saturations, blood pressure, adequacy of pulmonary ventilation, and response to care were monitored throughout the procedure. After obtaining informed consent, the endoscope was passed under direct vision. Throughout the procedure, the patient's blood pressure, pulse, and oxygen saturations were monitored continuously. The Endoscope was introduced through the mouth, and advanced to the second part of duodenum. The upper GI endoscopy was accomplished without difficulty. The patient tolerated the procedure well. Scope In: 8:06:40 AM Scope Out: 8:18:24 AM Total Procedure Duration Time 0 hours 11 minutes 44 seconds Findings: The first portion of the duodenum and second portion of the duodenum were normal. No biopsies or other specimens were collected for this exam. Diffuse moderate inflammation characterized by erythema was found in the entire examined stomach. Biopsies were taken with a cold forceps for histology. Estimated blood loss was minimal. Biopsies were taken with a cold forceps for Helicobacter pylori cultures. Estimated blood loss was minimal. A few 3 mm pedunculated and sessile polyps with no bleeding and no stigmata of recent bleeding were found in the gastric body. Biopsies were taken with a cold forceps for histology. Estimated blood loss was minimal. The Z-line was regular and was found 38 cm from the incisors. No gross lesions were noted in the lower third of the esophagus and in the entire esophagus. Biopsies were taken with a cold forceps for histology. Estimated blood loss was minimal. A medium-sized hill III hiatal hernia was present. No biopsies or other specimens were collected for this exam. Impression: - Normal first portion of the duodenum and second portion of the duodenum. No specimens collected. - Gastritis. Biopsied. - A few gastric polyps. Biopsied. - Z-line regular, 38 cm from the incisors. - No gross lesions in esophagus. Biopsied. - Medium-sized hill III hiatal hernia. No specimens collected. Recommendation: - Discharge patient to home (via wheelchair). - Resume regular diet today. - Continue present medications. - Await pathology results. Procedure Code(s): --- Professional --- 03616, Esophagogastroduodenoscopy, flexible, transoral; with biopsy, single or multiple Diagnosis Code(s): --- Professional --- K29.70, Gastritis, unspecified, without bleeding K31.7, Polyp of stomach and duodenum K44.9, Diaphragmatic hernia without obstruction or gangrene K21.9, Gastro-esophageal reflux disease without esophagitis CPT copyright 2017 [employer]. All rights reserved. The codes documented in this report are preliminary and upon him coder review may be revised to meet current compliance requirements. Arnie Mac MD 07/19/2021 9:08:39 AM This report has been signed electronically. Number of Addenda: 0 Note Initiated On: 07/19/2021 7:55 AM
--- NOTE | 2021-07-19 09:10 | OP.CCLET_ITS ---
07/19/2021 Robinson Patiño MD [address] [phone] Re : Upper GI endoscopy procedure for Geetha English Dear Dr. Patiño This procedure was performed on July. My impressions and recommendations are as follows: Impressions : - Normal first portion of the duodenum and second portion of the duodenum. No specimens collected. - Gastritis. Biopsied. - A few gastric polyps. Biopsied. - Z-line regular, 38 cm from the incisors. - No gross lesions in esophagus. Biopsied. - Medium-sized hill III hiatal hernia. No specimens collected. Recommendations : - Discharge patient to home (via wheelchair). - Resume regular diet today. - Continue present medications. - Await pathology results. My findings are described in the full procedure note, which is enclosed. If I can be of further assistance, please feel free to contact me at Doctor phone number(s): , Work: . Sincerely, Arnie Mac MD 07/19/2021 9:08:39 AM This report has been signed electronically.
--- NOTE | 2021-07-19 09:18 | OP.COLON_ITS ---
Patient Name: Geetha English Procedure Date: 07/19/2021 8:19 AM Date of : 1965 Age: 56 Procedure: Colonoscopy Indications: Screening for colorectal malignant neoplasm Providers: Arnie Mac MD Medicines: See the Anesthesia note for documentation of the administered medications Patient Profile: Refer to note in patient chart for documentation of history and physical. Patient has symptoms of chronic global abdominal pain, chronic heartburn and chronic nausea. Refer to note in patient chart for documentation of history and physical. Last Colonoscopy: none. The patient's first colonoscopy is today. Complications: No immediate complications. Estimated blood loss: None. Procedure: Pre-Anesthesia Assessment: - The heart rate, respiratory rate, oxygen saturations, blood pressure, adequacy of pulmonary ventilation, and response to care were monitored throughout the procedure. - The heart rate, respiratory rate, oxygen saturations, blood pressure, adequacy of pulmonary ventilation, and response to care were monitored throughout the procedure. After I obtained informed consent, the scope was passed under direct vision. Throughout the procedure, the patient's blood pressure, pulse, and oxygen saturations were monitored continuously. The Colonoscope was introduced through the anus and advanced to the cecum, identified by the ileocecal valve. The colonoscopy was technically difficult and complex due to a tortuous colon. Successful completion of the procedure was aided by applying abdominal pressure and lavage. The patient tolerated the procedure well. Scope In: 8:22:52 AM Scope Withdrawal Time 0 hours 19 minutes 1 second Scope Out: 8:59:29 AM Total Procedure Duration Time 0 hours 36 minutes 37 seconds Findings: The right colon was moderately tortuous. Advancing the scope required using manual pressure. The colon (entire examined portion) appeared normal. No biopsies or other specimens were collected for this exam. No additional abnormalities were found on retroflexion. Impression: - Tortuous colon. - The entire examined colon is normal. No specimens collected. Recommendation: - Discharge patient to home (via wheelchair). - Resume regular diet today. - Continue present medications. - Repeat colonoscopy in 10 years for screening purposes. Procedure Code(s): --- Professional --- G0121, Colorectal cancer screening; colonoscopy on individual not meeting criteria for high risk Diagnosis Code(s): --- Professional --- Z12.11, Encounter for screening for malignant neoplasm of colon Q43.8, Other specified congenital malformations of intestine CPT copyright 2017 [employer]. All rights reserved. The codes documented in this report are preliminary and upon acetylene torch operator review may be revised to meet current compliance requirements. Arnie Mac MD 07/19/2021 9:18:15 AM This report has been signed electronically. Number of Addenda: 0 Note Initiated On: 07/19/2021 8:19 AM
--- NOTE | 2021-07-19 09:19 | OP.CCLET_ITS ---
07/19/2021 Robinson Patiño MD [address] [phone] Re : Colonoscopy procedure for Geetha English Dear Dr. Patiño This procedure was performed on July. My impressions and recommendations are as follows: Impressions : - Tortuous colon. - The entire examined colon is normal. No specimens collected. Recommendations : - Discharge patient to home (via wheelchair). - Resume regular diet today. - Continue present medications. - Repeat colonoscopy in 10 years for screening purposes. My findings are described in the full procedure note, which is enclosed. If I can be of further assistance, please feel free to contact me at Doctor phone number(s): , Work: . Sincerely, Arnie Mac MD 07/19/2021 9:18:15 AM This report has been signed electronically.
== END 2021-07-19 10:58 | disposition home or self-care (01) ==
LOC: EN 06:56 → AC 06:57
PROVIDERS: PCP Family Medicine; Referring Provider Family Medicine; Visit Provider Surgery
PROC: 0DJD8ZZ Inspection of Lower Intestinal Tract, Via Natural or Artificial Opening Endoscopic (ICD-10-PCS; CPT 45378; principal; 2021-07-19 07:55)
DX: K29.50 Unspecified chronic gastritis without bleeding (principal); K31.7 Polyp of stomach and duodenum; K44.9 Diaphragmatic hernia without obstruction or gangrene; K21.9 Gastro-esophageal reflux disease without esophagitis; Z12.11 Encounter for screening for malignant neoplasm of colon; Q43.8 Other specified congenital malformations of intestine; E78.00 Pure hypercholesterolemia, unspecified; E21.3 Hyperparathyroidism, unspecified; E55.9 Vitamin D deficiency, unspecified; Z79.899 Other long term (current) drug therapy; Z87.891 Personal history of nicotine dependence
CPT/HCPCS: 43239; 45378; 88305; 88342; J7120; J2405

== ENCOUNTER → 2021-07-26 11:13 | Outpatient (CLI) | payer MEDICAID, SELFPAY ==
[2021-07-26 12:18] LABS: Calcium,Total 10.3 mg/dL (8.5-10.1)
[2021-07-26 12:26] LABS: PTHIN 30.7 pg/mL (18.4-80.1)
== END ==
PROVIDERS: PCP Family Medicine; Referring Provider Surgery; Visit Provider Surgery
DX: E21.3 Hyperparathyroidism, unspecified (principal); E83.52 Hypercalcemia
CPT/HCPCS: 36415; 82310; 83970

== ENCOUNTER → 2023-12-11 | Outpatient (CLI) | payer MEDICAID, SELFPAY ==
--- NOTE | 2023-12-11 16:18 | US_ITS ---
STUDY: THYROID ULTRASOUND REASON FOR EXAM: Female, 58 years old. H/O PARATHYROIDECTOMY TECHNIQUE: Ultrasound evaluation of the thyroid was performed with real-time and static millan-scale imaging. COMPARISON: Comparison is made with prior ultrasound of the thyroid dated May 01, 2021. FINDINGS: RIGHT LOBE: The right lobe of the thyroid gland measures 4.4 cm x 1.4 cm x 1.5 cm. There is a heterogeneous echotexture. Tiny cystic nodules are once again seen. The largest measures 6 mm x 7 mm x 3 mm. This also evidence of a solid/cystic nodule measuring 7 mm x 5 mm x 3 mm in the midpole. LEFT LOBE: The left lobe of the thyroid gland measures 3 cm x 1.5 cm x 1.1 cm. There is a heterogeneous echotexture. There is a 7 mm x 4 mm x 4 mm solid hypoechoic nodule in the midpole. ISTHMUS: The isthmus measures 2 mm. The regional lymph nodes are normal. US/Thyroid IMPRESSION: Stable examination. Electronically Signed: Miguel Angel Aragon MD at 13:53 EDT ,
== END | disposition home or self-care (01) ==
LOC: US 16:10
PROVIDERS: PCP Family Medicine
DX: Z90.89 Acquired absence of other organs (principal); Z98.890 Other specified postprocedural states
CPT/HCPCS: 76536